=== PATIENT | female | born 1945 | race Caucasian/White ===

== ENCOUNTER 2021-01-05 09:22 | Emergency (ER) | payer BC ==
[2021-01-05] MEDS ORDERED: APRESOLINE 20 MG/ML INJ IV PRN (09:56)
[2021-01-05] MEDS ORDERED: NORVASC 5 MG PO ONE (09:58)
[2021-01-05] MEDS ORDERED: Sodium Chloride 0.9% 1000 ML 1,000 ML IV SCH (10:00)
[2021-01-05] MEDS ORDERED: Sodium Chloride 0.9% 1000 ML 1,000 ML ONE (10:08)
[2021-01-05] MEDS ORDERED: APRESOLINE 20 MG/ML INJ ONE (10:08)
[2021-01-05] MEDS ORDERED: NORVASC 5 MG ONE (10:08)
[2021-01-05 10:12] LABS: Absolute Neutrophil Ct (ANC) 3.24 (1.4-6.9); BASOPHIL % 0.4 % (0.0-0.4); Basophil (Absolute #) 0.02 (0-0.4); Eosinophil % 5.8 % (0.00-5.0); Eosinophil (Absolute #) 0.33 (0-0.5); Hematocrit 42.4 % (35-47); Lymphocyte (Absolute #) 1.61 (1.0-4.6); Lymphocytes % 28.4 % (24.0-44.0); Mean Corpuscular Hemoglobin 30.4 pg (26-32); Mean Platelet Volume 10.2 fl (7.5-11.0); Monocyte (Absolute #) 0.47 (0.0-1.3); Monocytes % 8.3 % (0.0-12.0); Neutrophil % 57.1 % (36.0-66.0); Platelet Count 316 K/mm3 (150-450); Red Blood Count 4.61 M/mm3 (4.1-5.4); Red Cell Distribution Width 14.2 % (11.5-14.0); White Blood Count 5.7 K/mm3 (4.0-10.5)
[2021-01-05 10:15] LABS: Appearance CLEAR (CLEAR); Bilirubin NEGATIVE (NEGATIVE); Blood NEGATIVE Ery/ul (0-5); Glucose NEGATIVE (NEGATIVE); Ketones NEGATIVE (NEGATIVE); Leukocyte Esterase NEGATIVE (NEGATIVE); Nitrite NEGATIVE (NEGATIVE); Protein,Urine Dip NEGATIVE (Negative); RBC 0-2 /HPF (0-2); Specific Gravity 1.008 (1.005-1.025); Urobilinogen NEGATIVE mg/dL (0-1)
[2021-01-05 10:22] LABS: ALBUMIN 4.7 g/dL (3.5-5.0); ANION GAP 16.4 MEQ/L (5-15); BILIRUBIN,TOTAL 0.7 mg/dL (0.2-1.3); Calcium 9.3 mg/dL (8.4-10.2); Creatinine 1 1.04 mg/dL (0.52-1.04); EST GLOMERULAR FILTRATION RATE 55.2 ML/MIN; MAGNESIUM 2.1 mg/dL (1.6-2.3); Potassium 3.5 mmol/L (3.5-5.1)
--- NOTE | 2021-01-05 11:57 | ERPHSYRPT ---
- History of Present Illness Time Seen by Provider: 01/05/21 09:45 Source: patient Exam Limitations: no limitations Patient Subjective Stated Complaint: HTN Triage Nursing Assessment: pt to ED c/o HTN. home recording was 220/94. reports being started on omlesartan approx 2 weeks ago and taken off lisinopril at that time. pt takes 1 dose daily, which she took today at 0530. reports taking a second dose at 0900 today d/t BP not coming down with first dose. denies CP or GAO. heart sounds clear. Physician History: Patient is a 75-year-old white female who has longstanding hypertension which has been treated treated that is with lisinopril and hydrochlorothiazide for a long time recently she was switched to almost olmesartan and today she finds her blood pressure to be markedly elevated. She denies any headache chest pain shortness of breath etc. no increased edema. Timing/Duration: today Activities at Onset: none Severity of Pain-Max: none Severity of Pain-Current: none Modifying Factors: Improves With: nothing Nitro Today/Relief: no nitro taken today Aspirin Treatment Today: no aspirin today Associated Symptoms: denies symptoms Prior Chest Pain/Cardiac Workup: no prior chest pain Allergies/Adverse Reactions: No Known Drug Allergies Allergy (Unverified 01/05/21 09:43) Home Medications: Fenofibrate [Fenoglide] 160 mg PO DAILY 01/05/21 [History] Hydrochlorothiazide 25 mg [hydroDIURIL 25 MG] 25 mg PO DAILY 01/05/21 [History] Levothyroxine Sodium 100 Mcg [Synthroid 100 Mcg] 100 mcg PO DAILY 01/05/21 [History] Olmesartan Medoxomil 20 mg [Benicar 20 MG] 40 mg PO DAILY 01/05/21 [History] Hx Tetanus, Diphtheria Vaccination/Date Given: Yes Hx Influenza Vaccination/Date Given: Yes Hx Pneumococcal Vaccination/Date Given: No Immunizations Up to Date: Yes Travel Risk - International Travel Have you traveled outside of the country in past 3 weeks: No - Coronavirus Screening Are you exhibiting any of the following symptoms?: No Close contact with a COVID-19 positive Pt in past 14-21 Days: No - Vaccine Status Have you recieved a Covid-19 vaccination: Yes 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 - Vaccination Dates Date of 2cond Vaccination (if applicable): mar Comment: booster recieved - Review of Systems Constitutional: No Fever, No Chills Eyes: No Symptoms Ears, Nose, & Throat: No Symptoms Respiratory: No Cough, No Dyspnea Cardiac: No Chest Pain, No Edema, No Syncope Abdominal/Gastrointestinal: No Abdominal Pain, No Nausea, No Vomiting, No Diarrhea Genitourinary Symptoms: No Dysuria Musculoskeletal: No Back Pain, No Neck Pain Skin: No Rash Neurological: No Dizziness, No Focal Weakness, No Sensory Changes Psychological: No Symptoms Endocrine: No Symptoms All Other Systems: Reviewed and Negative - Past Medical History Pertinent Past Medical History: Yes Cardiac History: High Cholesterol, Hypertension Endocrine Medical History: Hyperthyroidism - Past Surgical History Past Surgical History: Yes Female Surgical History: Tubal Ligation - Social History Smoking Status: Never smoker Exposure to second hand smoke: No Drug Use: none Patient Lives Alone: No () - Female History Hx Now: No - Nursing Vital Signs Nursing Vital Signs: Initial Vital Signs Temperature 97.0 F 01/05/21 09:32 Pulse Rate 62 01/05/21 09:32 Respiratory Rate 18 01/05/21 09:32 Blood Pressure 224/90 01/05/21 09:32 O2 Sat by Pulse Oximetry 98 01/05/21 09:32 Pain Scale Pain Intensity 0 - Physical Exam General Appearance: no apparent distress, alert Eye Exam: PERRL/EOMI, eyes nml inspection Ears, Nose, Throat Exam: normal ENT inspection, moist mucous membranes Neck Exam: normal inspection, non-tender, supple Respiratory Exam: normal breath sounds, lungs clear, No respiratory distress Cardiovascular Exam: regular rate/rhythm, normal heart sounds, No edema Gastrointestinal/Abdomen Exam: soft, No tenderness, No mass Back Exam: normal inspection, No CVA tenderness, No vertebral tenderness Extremity Exam: normal inspection, normal range of motion Neurologic Exam: alert, oriented x 3, cooperative, normal mood/affect, nml cerebellar function, sensation nml, No motor deficits Skin Exam: normal color, warm, dry Lymphatic Exam: No adenopathy SpO2: 98 - Course Nursing assessment & vital signs reviewed: Yes Ordered Tests: Active Orders 24 hr Category Date Time Status IV Insertion STAT Care 01/05/21 09:55 Active CBC W DIFF Stat Lab 01/05/21 10:00 Completed CMP Stat Lab 01/05/21 10:00 Completed MAGNESIUM Stat Lab 01/05/21 10:00 Completed TROPONIN Q3H Lab 01/05/21 10:00 Completed TROPONIN Q3H Lab 01/05/21 13:00 Ordered TROPONIN Q3H Lab 01/05/21 16:00 Ordered TROPONIN Q3H Lab 01/05/21 19:00 Ordered TROPONIN Q3H Lab 01/05/21 22:00 Ordered UA W/RFX UR CULTURE Stat Lab 01/05/21 10:07 Completed Medication Summary Generic Name Dose Route Start Last Admin Trade Name Freq PRN Reason Stop Dose Admin Hydralazine HCl 10 mg 01/05/21 09:56 01/05/21 10:14 Hydralazine Hcl 20 Mg/Ml Vial IV 02/04/21 09:55 10 mg [id number] PRN Administration HYPERTENSION Sodium Chloride 1,000 mls @ 50 mls/hr 01/05/21 10:00 01/05/21 10:12 Sodium Chloride 0.9% 1000 Ml IV 02/04/21 09:59 50 mls/hr .Q20H KLAUS Administration Discontinued Medications Generic Name Dose Route Start Last Admin Trade Name Freq PRN Reason Stop Dose Admin Amlodipine Besylate 10 mg 01/05/21 09:58 01/05/21 10:11 Amlodipine Besylate 5 Mg Tablet PO 01/05/21 09:59 10 mg STAT ONE Administration Amlodipine Besylate Confirm 01/05/21 10:08 Amlodipine Besylate 5 Mg Tablet Administered 01/05/21 10:09 Dose 10 mg .ROUTE .[facility] [employer] ONE Lab/Rad Data: Laboratory Result Diagrams 01/05/21 10:00 01/05/21 10:00 Laboratory Results 01/05/21 01/05/21 01/05/21 Range/Units 10:07 10:00 10:00 WBC (4.0-10.5) K/mm3 RBC (4.1-5.4) M/mm3 Hgb (12.0-16.0) gm/dl Hct (35-47) % MCV (78-100) fl MCH (26-32) pg MCHC (32-36) g/dl RDW (11.5-14.0) % Plt Count (150-450) K/mm3 MPV (7.5-11.0) fl Gran % (36.0-66.0) % Eos # (Auto) (0-0.5) Absolute Lymphs (auto) (1.0-4.6) Absolute Monos (auto) (0.0-1.3) Lymphocytes % (24.0-44.0) % Monocytes % (0.0-12.0) % Eosinophils % (0.00-5.0) % Basophils % (0.0-0.4) % Absolute Granulocytes (1.4-6.9) Basophils # (0-0.4) Sodium 138 (137-145) mmol/L Potassium 3.5 (3.5-5.1) mmol/L Chloride 101 (98-107) mmol/L Carbon Dioxide 24 (22-30) mmol/L Anion Gap 16.4 H (5-15) MEQ/L BUN 18 H (7-17) mg/dL Creatinine 1.04 (0.52-1.04) mg/dL Estimated GFR 55.2 ML/MIN Glucose 96 (74-106) mg/dL Calcium 9.3 (8.4-10.2) mg/dL Magnesium 2.1 (1.6-2.3) mg/dL Total Bilirubin 0.70 (0.2-1.3) mg/dL AST 35 (14-36) U/L ALT 29 (0-35) U/L Alkaline Phosphatase 36 L (38-126) U/L Troponin I < 0.012 (0.000-0.034) ng/mL Serum Total Protein 8.0 (6.3-8.2) g/dL Albumin 4.7 (3.5-5.0) g/dL Urine Color YELLOW (YELLOW) Urine Appearance CLEAR (CLEAR) Urine pH 5.0 (5-6) Ur Specific Morton 1.008 (1.005-1.025) Urine Protein NEGATIVE (Negative) Urine Ketones NEGATIVE (NEGATIVE) Urine Blood NEGATIVE (0-5) Jl/ul Urine Nitrite NEGATIVE (NEGATIVE) Urine Bilirubin NEGATIVE (NEGATIVE) Urine Urobilinogen NEGATIVE (0-1) mg/dL Ur Leukocyte Esterase NEGATIVE (NEGATIVE) Urine WBC (Auto) 3-5 (0-5) /HPF Urine RBC (Auto) 0-2 (0-2) /HPF U Epithel Cells (Auto) NONE (FEW) /HPF Urine Bacteria (Auto) NONE (NEGATIVE) /HPF Urine Culture Reflexed NO (NO) Urine Glucose NEGATIVE (NEGATIVE) mg/dL 01/05/21 Range/Units 10:00 WBC 5.7 (4.0-10.5) K/mm3 RBC 4.61 (4.1-5.4) M/mm3 Hgb 14.0 (12.0-16.0) gm/dl Hct 42.4 (35-47) % MCV 92.0 (78-100) fl MCH 30.4 (26-32) pg MCHC 33.0 (32-36) g/dl RDW 14.2 H (11.5-14.0) % Plt Count 316 (150-450) K/mm3 MPV 10.2 (7.5-11.0) fl Gran % 57.1 (36.0-66.0) % Eos # (Auto) 0.33 (0-0.5) Absolute Lymphs (auto) 1.61 (1.0-4.6) Absolute Monos (auto) 0.47 (0.0-1.3) Lymphocytes % 28.4 (24.0-44.0) % Monocytes % 8.3 (0.0-12.0) % Eosinophils % 5.8 H (0.00-5.0) % Basophils % 0.4 (0.0-0.4) % Absolute Granulocytes 3.24 (1.4-6.9) Basophils # 0.02 (0-0.4) Sodium (137-145) mmol/L Potassium (3.5-5.1) mmol/L Chloride (98-107) mmol/L Carbon Dioxide (22-30) mmol/L Anion Gap (5-15) MEQ/L BUN (7-17) mg/dL Creatinine (0.52-1.04) mg/dL Estimated GFR ML/MIN Glucose (74-106) mg/dL Calcium (8.4-10.2) mg/dL Magnesium (1.6-2.3) mg/dL Total Bilirubin (0.2-1.3) mg/dL AST (14-36) U/L ALT (0-35) U/L Alkaline Phosphatase (38-126) U/L Troponin I (0.000-0.034) ng/mL Serum Total Protein (6.3-8.2) g/dL Albumin (3.5-5.0) g/dL Urine Color (YELLOW) Urine Appearance (CLEAR) Urine pH (5-6) Ur Specific Morton (1.005-1.025) Urine Protein (Negative) Urine Ketones (NEGATIVE) Urine Blood (0-5) Jl/ul Urine Nitrite (NEGATIVE) Urine Bilirubin (NEGATIVE) Urine Urobilinogen (0-1) mg/dL Ur Leukocyte Esterase (NEGATIVE) Urine WBC (Auto) (0-5) /HPF Urine RBC (Auto) (0-2) /HPF U Epithel Cells (Auto) (FEW) /HPF Urine Bacteria (Auto) (NEGATIVE) /HPF Urine Culture Reflexed (NO) Urine Glucose (NEGATIVE) mg/dL - Progress Progress: improved Air Movement: good Blood Culture(s) Obtained: No Antibiotics given: No - Departure Departure Disposition: Home Clinical Impression: Hypertension Condition: Stable Critical Care Time: No Referrals: DOCTOR,NO FAMILY [Primary Care Provider] - Follow up/PCP as directed Instructions: Malignant Hypertension (DC) Prescriptions: Amlodipine Besylate 5 mg [Norvasc 5 mg] 10 mg PO DAILY 30 Days #30 tablet
[2021-01-05] MEDS ORDERED: HUMULIN R 100 UNIT in Sodium Chloride 0.9% 100 ML BAG 100 ML IV PRN (11:58)
== END 2021-01-05 12:11 | disposition home or self-care (01) ==
LOC: ED 09:22
DX: I10 Essential (primary) hypertension (principal); Z79.899 Other long term (current) drug therapy
CPT/HCPCS: 36000; 36415; 80053; 81001; 83735; 84484; 85025; 96374; 99284; J0360; A9270-GY

== ENCOUNTER 2023-07-12 11:24 | Observation (INO) | payer BC ==
--- NOTE | 2023-07-12 11:36 | ERPHSYRPT ---
- History of Present Illness Time Seen by Provider: 07/12/23 11:33 Source: patient Exam Limitations: no limitations Patient Subjective Stated Complaint: shortness of breath Triage Nursing Assessment: . Physician History: This is a 78-year-old white female patient who has been experiencing shortness of breath the last 2 to 3 days. Her symptoms are worse with exertion. She could not even work in the garden today. Patient's room air oxygen saturation level on arrival to the emergency room was 92%. 2 L nasal cannula of oxygen was placed on her and her oxygen saturation levels improved to 98%. Patient denies chest pain. She has no abdominal pain. She has not had fever or cough. Patient states that she is concerned about a possible blood clot. She has no leg pain. Patient does see a wound nurse in [place] for "leaky heart valve". Patient has no bleeding or clotting disorders. Patient has a history of hypertension and hypothyroidism. She is on a daily aspirin but no other anticoagulation medication Timing/Duration: day(s) (Began 2 to 3 days ago), worse Activities at Onset: activity Severity of Dyspnea-Max: mild (To moderate with activity and exertion) Severity of Dyspnea-Current: none Possible Cause: no prior episodes Modifying Factors: Improves With: activity, exertion Associated Symptoms: denies symptoms Allergies/Adverse Reactions: No Known Drug Allergies Allergy (Verified 07/12/23 11:32) Home Medications: Fenofibrate [Fenoglide] 160 mg PO DAILY 01/05/21 [History] Hydrochlorothiazide 25 mg [hydroDIURIL 25 MG] 25 mg PO DAILY 01/05/21 [History] Levothyroxine Sodium 100 Mcg [Synthroid 100 Mcg] 100 mcg PO DAILY 01/05/21 [History] Olmesartan Medoxomil 20 mg [Benicar 20 MG] 40 mg PO DAILY 01/05/21 [History] Hx Tetanus, Diphtheria Vaccination/Date Given: Yes Hx Influenza Vaccination/Date Given: Yes Hx Pneumococcal Vaccination/Date Given: No Travel Risk - International Travel Have you traveled outside of the country in past 3 weeks: No - Emerging Infectious Disease Are you exhibiting symptoms associated with any current EIDs: Yes Symptoms: Shortness of Breath - Review of Systems Constitutional: No Symptoms Eyes: No Symptoms Ears, Nose, & Throat: No Symptoms Respiratory: Dyspnea, Dyspnea on Exertion (JIMENES) Cardiac: No Symptoms Abdominal/Gastrointestinal: No Symptoms Genitourinary Symptoms: No Symptoms Musculoskeletal: No Symptoms Skin: No Symptoms Neurological: No Symptoms Psychological: No Symptoms Endocrine: No Symptoms Hematologic/Lymphatic: No Symptoms Immunological/Allergic: No Symptoms All Other Systems: Reviewed and Negative - Past Medical History Pertinent Past Medical History: Yes Cardiac History: High Cholesterol, Hypertension Endocrine Medical History: Hyperthyroidism - Past Surgical History Past Surgical History: Yes Female Surgical History: Tubal Ligation - Social History Smoking Status: Never smoker Exposure to second hand smoke: No Drug Use: none Patient Lives Alone: No () - Nursing Vital Signs Nursing Vital Signs: Initial Vital Signs Temperature 97.5 F 07/12/23 11:25 Pulse Rate 68 07/12/23 11:25 Respiratory Rate 18 07/12/23 11:25 Blood Pressure 128/85 07/12/23 11:25 O2 Sat by Pulse Oximetry 92 L 07/12/23 11:25 Pain Scale Pain Intensity 0 - Physical Exam General Appearance: no apparent distress, alert, anxiety Eye Exam: PERRL/EOMI, eyes nml inspection Ears, Nose, Throat Exam: hearing grossly normal, normal ENT inspection, normal pharynx Neck Exam: normal inspection, non-tender, supple, full range of motion Respiratory Exam: normal breath sounds, airway intact, No chest tenderness, No lungs clear, No respiratory distress Cardiovascular/Chest Exam: normal heart sounds, regular rate/rhythm Abdominal/Gastrointestinal Exam: soft, normal bowel sounds, No tenderness Rectal Exam: not done Extremity Exam: non-tender, normal range of motion, normal inspection Neurologic Exam: alert, oriented x 3, cooperative, director of medical staff services II-XII nml as tested, nml cerebellar function, nml station & gait, sensation nml Skin Exam: normal color, warm, dry Lymphatic Exam: No adenopathy SpO2 Interpretation: normal SpO2: 98 O2 Delivery: Room Air - Course Nursing assessment & vital signs reviewed: Yes EKG Interpreted by Me: RATE (65), Sinus Rhythm, NORMAL AXIS, NORMAL QRS, NORMAL ST-T, Other (No acute ischemia.NC interval is prolonged) Ordered Tests: Active Orders 24 hr Category Date Time Status Bookkeeping Clerk STAT Care 07/12/23 11:49 Active EKG-ER Only STAT Care 07/12/23 11:48 Active IV Insertion STAT Care 07/12/23 11:48 Active Oxygen-ED Only Nasal Cannula 2 lpm Care 07/12/23 13:24 Active Pulse Oximetry (ED) STAT Care 07/12/23 11:48 Active CHEST WITH CONTRAST [CT] Stat Exams 07/12/23 13:13 Completed VENOUS BILATERAL EXTREMITY [US] Stat Exams 07/12/23 13:15 Ordered BLOOD CULTURE Stat Lab 07/12/23 12:07 Received CBC W DIFF Stat Lab 07/12/23 11:15 Completed CMP Stat Lab 07/12/23 11:15 Completed D-DIMER QUANTITATIVE Stat Lab 07/12/23 11:15 Completed MAGNESIUM Stat Lab 07/12/23 11:15 Completed NT PRO BNPII Stat Lab 07/12/23 11:15 Completed PROTIME WITH INR Stat Lab 07/12/23 11:15 Completed TROPONIN Q4H Lab 07/12/23 11:15 Completed TROPONIN Q4H Lab 07/12/23 16:00 Ordered TROPONIN Q4H Lab 07/12/23 20:00 Ordered Medication Summary Discontinued Medications Generic Name Dose Route Start Last Admin Trade Name Freq PRN Reason Stop Dose Admin Enoxaparin Sodium 70 mg 07/12/23 15:07 07/12/23 15:15 Enoxaparin Sodium 80 Mg/0.8 Ml Syringe SQ 07/12/23 15:08 70 mg STAT ONE Administration Enoxaparin Sodium Confirm 07/12/23 15:13 Enoxaparin Sodium 80 Mg/0.8 Ml Syringe Administered 07/12/23 15:14 Dose 80 mg SQ .STK-MED ONE Sodium Chloride 500 mls @ 500 mls/hr 07/12/23 13:14 07/12/23 14:22 Sodium Chloride 0.9% 500 Ml IV 07/12/23 14:13 Infused .Q1H ONE Infusion Sodium Chloride Confirm 07/12/23 13:19 Sodium Chloride 0.9% 500 Ml Administered 07/12/23 13:20 Dose 500 mls @ ud IV .STK-MED ONE Lab/Rad Data: Laboratory Result Diagrams 07/12/23 11:15 07/12/23 11:15 Laboratory Results 07/12/23 07/12/23 07/12/23 Range/Units 12:19 11:15 11:15 WBC (4.0-10.5) x10^3/uL RBC (4.1-5.4) x10^6/uL Hgb (12.0-16.0) g/dL Hct (35-47) % MCV (78-100) fL MCH (26-32) pg MCHC (32-36) g/dL RDW (11.5-14.0) % Plt Count (150-450) x10^3/uL MPV (7.5-11.0) fL Gran % (36.0-66.0) % Immature Gran % (Auto) (0.00-0.4) % Nucleat RBC Rel Count (0.00-0.1) % Eos # (Auto) (0-0.5) x10^3/uL Immature Gran # (Auto) (0.00-0.03) x10^3u/L Absolute Lymphs (auto) (1.0-4.6) x10^3/uL Absolute Monos (auto) (0.0-1.3) x10^3/uL Absolute Nucleated RBC (0.00-0.01) x10^3u/L Lymphocytes % (24.0-44.0) % Monocytes % (0.0-12.0) % Eosinophils % (0.00-5.0) % Basophils % (0.0-0.4) % Absolute Granulocytes (1.4-6.9) x10^3/uL Basophils # (0-0.4) x10^3/uL PT 11.2 (9.4-12.5) SECONDS INR 1.03 (0.8-3.0) D-Dimer 8.86 H* (0.0-0.50) mg/L Sodium (135-145) mmol/L Potassium (3.5-5.1) mmol/L Chloride (98-107) mmol/L Carbon Dioxide (22-30) mmol/L Anion Gap (5-15) MEQ/L BUN (7-17) mg/dL Creatinine (0.52-1.04) mg/dL Estimated GFR ML/MIN Glucose (74-106) mg/dL Calcium (8.4-10.2) mg/dL Magnesium (1.6-2.3) mg/dL Total Bilirubin (0.2-1.3) mg/dL AST (14-36) U/L ALT (0-35) U/L Alkaline Phosphatase (38-126) U/L Troponin I < 0.012 (0.000-0.033) ng/mL NT-Pro-B Natriuret Pep (<300) pg/mL Serum Total Protein (6.3-8.2) g/dL Albumin (3.5-5.0) g/dL Influenza Type A Ag NEGATIVE (NEGATIVE) Influenza Type B Ag NEGATIVE (NEGATIVE) RSV (PCR) NEGATIVE (NEGATIVE) SARS-CoV-2 (PCR) NEGATIVE (NEGATIVE) 07/12/23 07/12/23 Range/Units 11:15 11:15 WBC 6.7 (4.0-10.5) x10^3/uL RBC 4.37 (4.1-5.4) x10^6/uL Hgb 13.4 (12.0-16.0) g/dL Hct 38.8 (35-47) % MCV 88.8 (78-100) fL MCH 30.7 (26-32) pg MCHC 34.5 (32-36) g/dL RDW 13.3 (11.5-14.0) % Plt Count 364 (150-450) x10^3/uL MPV 10.0 (7.5-11.0) fL Gran % 60.1 (36.0-66.0) % Immature Gran % (Auto) 0.4 (0.00-0.4) % Nucleat RBC Rel Count 0.0 (0.00-0.1) % Eos # (Auto) 0.24 (0-0.5) x10^3/uL Immature Gran # (Auto) 0.03 (0.00-0.03) x10^3u/L Absolute Lymphs (auto) 1.81 (1.0-4.6) x10^3/uL Absolute Monos (auto) 0.58 (0.0-1.3) x10^3/uL Absolute Nucleated RBC 0.00 (0.00-0.01) x10^3u/L Lymphocytes % 26.9 (24.0-44.0) % Monocytes % 8.6 (0.0-12.0) % Eosinophils % 3.6 (0.00-5.0) % Basophils % 0.4 (0.0-0.4) % Absolute Granulocytes 4.03 (1.4-6.9) x10^3/uL Basophils # 0.03 (0-0.4) x10^3/uL PT (9.4-12.5) SECONDS INR (0.8-3.0) D-Dimer (0.0-0.50) mg/L Sodium 136 (135-145) mmol/L Potassium 3.5 (3.5-5.1) mmol/L Chloride 101 (98-107) mmol/L Carbon Dioxide 22 (22-30) mmol/L Anion Gap 16.9 H (5-15) MEQ/L BUN 29 H (7-17) mg/dL Creatinine 1.70 H (0.52-1.04) mg/dL Estimated GFR 30.9 ML/MIN Glucose 109 H (74-106) mg/dL Calcium 10.2 (8.4-10.2) mg/dL Magnesium 2.1 (1.6-2.3) mg/dL Total Bilirubin 0.90 (0.2-1.3) mg/dL AST 30 (14-36) U/L ALT 25 (0-35) U/L Alkaline Phosphatase 39 (38-126) U/L Troponin I (0.000-0.033) ng/mL NT-Pro-B Natriuret Pep 218 (<300) pg/mL Serum Total Protein 8.1 (6.3-8.2) g/dL Albumin 4.6 (3.5-5.0) g/dL Influenza Type A Ag (NEGATIVE) Influenza Type B Ag (NEGATIVE) RSV (PCR) (NEGATIVE) SARS-CoV-2 (PCR) (NEGATIVE) - Progress Progress: improved, re-examined Air Movement: good Progress Note: 07/12/23 12:30 My medical decision making and the assignment of moderate complexity to this pat ient's medical issue is based on review of the patient's past medical history, review the patient's medication list, review the patient drug allergy list, history of present illness and physical findings on examination. The patient's workup includes placement of an intravenous line, CBC, CMP, PT INR and PTT, twelve-lead EKG, troponin level, D-dimer level, BNP, chest x-ray, viral swabs, group A strep swab Differential diagnosis includes pneumonia, arrhythmia, myocardial infarction, pulmonary embolus, CHF, anemia, viral illness 07/12/23 14:05 I interpreted the patient's laboratory data results. Patient has a D-dimer that is over 8. Her GFR is under the 50 cutoff that the radiologist prefer to to perform this CT scan of the chest with contrast. I discussed the risk of the contrast dye to the kidney function. She is aware that we try to minimize this risk with IV hydration. We provided her with this. She also understands that there is a risk of not performing the CT scan of the chest with contrast to rule out a pulmonary embolus. She knows that she could if there is a pulmonary embolus and it goes undetected because she refuses the test. I did discuss the alternative of VQ scan which we cannot provide this patient over the weekend. She has opted to perform the CT scan of the chest with contrast. 07/12/23 15:07 The radiologic technology instructor/technologist reported to me that the left lower extremity shows no DVT. However, the right lower extremity does show a proximal to distal DVT of the posterior tibial vein. CT of the chest with contrast was interpreted by the radiologist and I received verbal report. Patient has bilateral pulmonary emboli distally. I am awaiting the final official read. We will contact telehospitalist. I will provide the patient with Lovenox subcutaneously at this time. 07/12/23 15:18 Spoke with telehospitalist, Dr. Herrera, and reviewed the patient history, presenting complaint, physical findings and laboratory and radiographic study results. I told her that that I provided the patient with a dose of Lovenox subcutaneously. She agrees to place this patient in observation. Blood Culture(s) Obtained: Yes Antibiotics given: No Counseled pt/family regarding: lab results, diagnosis, rad results Medical Desision Making - Independent Historian Additional History obtained from: Spouse - Departure Departure Disposition: Observation Clinical Impression: Shortness of breath, Right leg DVT, Bilateral pulmonary embolism Condition: Stable Critical Care Time: Yes Critical Care Time(excluding separately billable procedures): Critical 30-74 mins (60) Referrals: DOCTOR,NO FAMILY [Primary Care Provider] - Follow up/PCP as directed
[2023-07-12 12:13] LABS: Absolute Neutrophil Ct (ANC) 4.03 x10^3/uL (1.4-6.9); BASOPHIL % 0.4 % (0.0-0.4); Basophil (Absolute #) 0.03 x10^3/uL (0-0.4); Eosinophil % 3.6 % (0.00-5.0); Eosinophil (Absolute #) 0.24 x10^3/uL (0-0.5); Hematocrit 38.8 % (35-47); Hemoglobin 13.4 g/dL (12.0-16.0); IMMATURE GRAN # 0.03 x10^3u/L (0.00-0.03); IMMATURE GRAN % 0.4 % (0.00-0.4); Lymphocyte (Absolute #) 1.81 x10^3/uL (1.0-4.6); Lymphocytes % 26.9 % (24.0-44.0); Mean Cell Volume 88.8 fL (78-100); Mean Corpuscular Hemoglobin 30.7 pg (26-32); Mean Corpuscular Hgb Concent. 34.5 g/dL (32-36); Monocyte (Absolute #) 0.58 x10^3/uL (0.0-1.3); Monocytes % 8.6 % (0.0-12.0); Neutrophil % 60.1 % (36.0-66.0); Platelet Count 364 x10^3/uL (150-450); Red Blood Count 4.37 x10^6/uL (4.1-5.4); Red Cell Distribution Width 13.3 % (11.5-14.0); White Blood Count 6.7 x10^3/uL (4.0-10.5)
[2023-07-12 12:35] LABS: ALBUMIN 4.6 g/dL (3.5-5.0); ANION GAP 16.9 MEQ/L (5-15); BILIRUBIN,TOTAL 0.9 mg/dL (0.2-1.3); Calcium 10.2 mg/dL (8.4-10.2); Creatinine 1 1.7 mg/dL (0.52-1.04); EST GLOMERULAR FILTRATION RATE 30.9 ML/MIN; MAGNESIUM 2.1 mg/dL (1.6-2.3); Potassium 3.5 mmol/L (3.5-5.1); Total Protein 8.1 g/dL (6.3-8.2)
[2023-07-12 12:57] LABS: INFLUENZA A NEGATIVE (NEGATIVE); INFLUENZA B NEGATIVE (NEGATIVE); RESPIRATORY SYNCTIAL VIRUS NEGATIVE (NEGATIVE); SARS-CoV-2 Xpert Express NEGATIVE (NEGATIVE)
[2023-07-12 12:58] LABS: INR 1.03 (0.8-3.0); PROTIME 11.2 SECONDS (9.4-12.5)
[2023-07-12 13:13] LABS: D-DIMER QUANTITATIVE 8.86 mg/L (0.0-0.50)
[2023-07-12] MEDS ORDERED: Sodium Chloride 0.9% 500 ML 500 ML IV ONE (13:19)
[2023-07-12] MEDS: Sodium Chloride 0.9% 500 ML 500 ML IV ONE (13:22)
--- NOTE | 2023-07-12 15:12 | XRAY ---
CLINICAL HISTORY: SOB; Elevated D-dimer COMPARISON: None TECHNIQUE: Contiguous axial images were obtained from the neck base through the upper abdomen following intravenous administration of iodinated contrast material. One of the following dose-reduction techniques was utilized for this exam. Automated exposure control, adjustment of the mA and/or kV according to patient size, and use of iterative reconstruction. FINDINGS: Adequate contrast bolus with evidence of bilateral acute pulmonary embolism evident by filling defect with arterial dilatation involving the right upper lobar and lower lobar with extension to segmental branches. The left lower lobar and left upper segmental branches show acute filling defects as well. The central airways are patent. The lungs are clear. No pleural effusion. The heart is enlarged. Unremarkable aorta. There are mild coronary artery and aortic atherosclerotic calcifications. No pericardial effusion is identified. No mediastinal, hilar, or axillary lymphadenopathy is noted. No suspicious lytic or sclerotic osseous lesions are identified. IMPRESSION: 1. Bilateral acute pulmonary embolism involving the right upper and lower lobar branches with extension to segmental branches, and left lower lobar branch with segmental lower and upper branches. 2. Cardiomegaly for further assessment. ER was called at [phone] at 02:03 PM FLIGHT ATTENDANT, and the results were communicated to [facility]. Electronically Signed by: Dino Maharaj MD. (07/12/2023 15:08:57 EDT)
[2023-07-12] MEDS ORDERED: ENOXAPARIN SODIUM SQ ONE (15:13)
[2023-07-12] MEDS: ENOXAPARIN SODIUM SQ ONE (15:15)
[2023-07-12] MEDS ORDERED: Zofran 4 MG/2 ML VIAL IV PRN (16:15)
[2023-07-12] MEDS ORDERED: TYLENOL 325 MG PO PRN (16:15)
--- NOTE | 2023-07-12 16:23 | PCM.HP ---
<NICK ODONNELL - Last Filed: 07/12/23 16:38> History of Present Illness - Chief Complaint Chief Complaint: Bilateral pulmonary emboli Date: 07/12/23 History of Present Illness: is a 78 year old female with pmhx of HLD, hypothyroidism, and HTN who presented to ED after experiencing progressive shortness of breath since 07/09/23. Patient reports that she was in her usual state of health until she returned home from recent travel from [place] to [place] and then home on 07/08/23 and the next day noticed she has been unable to perform ADL's without getting moderately short of breath. Patient denies hemoptysis, chest pain, fev er, syncope, leg pain/swelling. In ED vitals stable. Patient did have spo2 of 92% and was placed on 2L and now at 96%. Lab findings remarkable for an elevated Ddimer and PETE. EKG NS with no ST elevation/deviations. CT chest demonstrates bilateral PE involving the right upper and lower lobes as well as the left lower lobe. Venous doppler with right lower extremity DVT of the posterior tibial vein. Patient given therapeutic lovenox in ED as well as hydration prior to CT scan with 500ml bolus. Plan to observe overnight with DOAC initiation tomorrow. - Review of Systems Constitutional: No Symptoms Eyes: No Symptoms Ears, Nose, & Throat: No Symptoms Respiratory: Short Of Breath Cardiac: No Symptoms Abdominal/Gastrointestinal: No Symptoms Genitourinary Symptoms: No Symptoms Musculoskeletal: No Symptoms Skin: No Symptoms Neurological: No Symptoms Psychological: No Symptoms Endocrine: No Symptoms Hematologic/Lymphatic: No Symptoms Immunological/Allergic: No Symptoms Medications & Allergies Home Medications: Home Medication List Fenofibrate [Fenoglide] 160 mg PO DAILY 01/05/21 [History Confirmed 07/12/23] Amlodipine Besylate 5 mg [Norvasc 5 mg] 5 mg PO BID 07/12/23 [History Confirmed 07/12/23] Aspirin EC 81 mg [Ecotrin 81 mg] 81 mg PO DAILY 07/12/23 [History Confirmed 07/12/23] Clonidine HCl 0.1 mg [Clonidine 0.1 mg Tablet] 0.1 mg PO HS 07/12/23 [History Confirmed 07/12/23] Irbesartan [Avapro] 300 mg PO DAILY 07/12/23 [History Confirmed 07/12/23] Levothyroxine Sodium 88 Mcg [Synthroid 88 Mcg] 88 mcg PO DAILY 07/12/23 [History Confirmed 07/12/23] Multivitamins,Therapeutic Tab* [Theragran Multivitamin] 1 tab PO DAILY 07/12/23 [History Confirmed 07/12/23] hydroCHLOROthiazide [Hydrochlorothiazide] 12.5 mg PO DAILY 07/12/23 [History Confirmed 07/12/23] Allergies/Adverse Reactions: Allergies Allergy/AdvReac Type Severity Reaction Status Date / Time No Known Drug Allergies Allergy Verified 07/12/23 11:32 - Past Medical History Past Medical History: Yes Cardiac History: High Cholesterol, Hypertension Endocrine Medical History: Hyperthyroidism - Past Surgical History Past Surgical History: Yes Female Surgical History: Tubal Ligation - Social History Smoking Status: Never smoker Exposure to second hand smoke: No Alcohol: None Drug Use: none - Social Determinants of Health Will the patient participate in the screening: Yes Do you worry about a steady place to live?: No Do you have any problems with any of the following?: No known problems In the past 12 months,have you had to go without utilities?: No Have you or anyone in your house had to go without enough: No Transportation Issues: No Has anyone in your support network made you feel unsafe?: No - Physical Exam Vital Signs: Vital Signs - 24 hr Temp Pulse Resp BP BP Pulse Ox 07/12/23 15:23 98 07/12/23 14:30 61 14 154/64 96 07/12/23 14:24 63 18 156/123 97 07/12/23 14:00 148/76 93 L 07/12/23 13:30 60 21 138/63 96 07/12/23 13:00 60 18 119/64 96 07/12/23 12:06 92 L 07/12/23 11:25 97.5 F 68 18 128/85 98 General Appearance: no apparent distress Neurologic Exam: alert, oriented x 3, cooperative Eye Exam: PERRL/EOMI Ears, Nose, Throat Exam: normal ENT inspection Neck Exam: normal inspection Respiratory Exam: normal breath sounds, lungs clear Cardiovascular Exam: regular rate/rhythm, normal heart sounds Pelvic Exam: not done Rectal Exam: deferred Back Exam: normal inspection Extremity Exam: normal inspection Skin Exam: normal color Results - Labs Lab/Micro Results: Lab Results-Last 24 Hours 07/12/23 07/12/23 07/12/23 Range/Units 11:15 11:15 11:15 WBC 6.7 (4.0-10.5) x10^3/uL RBC 4.37 (4.1-5.4) x10^6/uL Hgb 13.4 (12.0-16.0) g/dL Hct 38.8 (35-47) % MCV 88.8 (78-100) fL MCH 30.7 (26-32) pg MCHC 34.5 (32-36) g/dL RDW 13.3 (11.5-14.0) % Plt Count 364 (150-450) x10^3/uL MPV 10.0 (7.5-11.0) fL Gran % 60.1 (36.0-66.0) % Immature Gran % (Auto) 0.4 (0.00-0.4) % Nucleat RBC Rel Count 0.0 (0.00-0.1) % Eos # (Auto) 0.24 (0-0.5) x10^3/uL Immature Gran # (Auto) 0.03 (0.00-0.03) x10^3u/L Absolute Lymphs (auto) 1.81 (1.0-4.6) x10^3/uL Absolute Monos (auto) 0.58 (0.0-1.3) x10^3/uL Absolute Nucleated RBC 0.00 (0.00-0.01) x10^3u/L Lymphocytes % 26.9 (24.0-44.0) % Monocytes % 8.6 (0.0-12.0) % Eosinophils % 3.6 (0.00-5.0) % Basophils % 0.4 (0.0-0.4) % Absolute Granulocytes 4.03 (1.4-6.9) x10^3/uL Basophils # 0.03 (0-0.4) x10^3/uL PT 11.2 (9.4-12.5) SECONDS INR 1.03 (0.8-3.0) D-Dimer 8.86 H* (0.0-0.50) mg/L Sodium 136 (135-145) mmol/L Potassium 3.5 (3.5-5.1) mmol/L Chloride 101 (98-107) mmol/L Carbon Dioxide 22 (22-30) mmol/L Anion Gap 16.9 H (5-15) MEQ/L BUN 29 H (7-17) mg/dL Creatinine 1.70 H (0.52-1.04) mg/dL Estimated GFR 30.9 ML/MIN Glucose 109 H (74-106) mg/dL Calcium 10.2 (8.4-10.2) mg/dL Magnesium 2.1 (1.6-2.3) mg/dL Total Bilirubin 0.90 (0.2-1.3) mg/dL AST 30 (14-36) U/L ALT 25 (0-35) U/L Alkaline Phosphatase 39 (38-126) U/L Troponin I (0.000-0.033) ng/mL NT-Pro-B Natriuret Pep 218 (<300) pg/mL Serum Total Protein 8.1 (6.3-8.2) g/dL Albumin 4.6 (3.5-5.0) g/dL Influenza Type A Ag (NEGATIVE) Influenza Type B Ag (NEGATIVE) RSV (PCR) (NEGATIVE) SARS-CoV-2 (PCR) (NEGATIVE) 07/12/23 07/12/23 Range/Units 11:15 12:19 WBC (4.0-10.5) x10^3/uL RBC (4.1-5.4) x10^6/uL Hgb (12.0-16.0) g/dL Hct (35-47) % MCV (78-100) fL MCH (26-32) pg MCHC (32-36) g/dL RDW (11.5-14.0) % Plt Count (150-450) x10^3/uL MPV (7.5-11.0) fL Gran % (36.0-66.0) % Immature Gran % (Auto) (0.00-0.4) % Nucleat RBC Rel Count (0.00-0.1) % Eos # (Auto) (0-0.5) x10^3/uL Immature Gran # (Auto) (0.00-0.03) x10^3u/L Absolute Lymphs (auto) (1.0-4.6) x10^3/uL Absolute Monos (auto) (0.0-1.3) x10^3/uL Absolute Nucleated RBC (0.00-0.01) x10^3u/L Lymphocytes % (24.0-44.0) % Monocytes % (0.0-12.0) % Eosinophils % (0.00-5.0) % Basophils % (0.0-0.4) % Absolute Granulocytes (1.4-6.9) x10^3/uL Basophils # (0-0.4) x10^3/uL PT (9.4-12.5) SECONDS INR (0.8-3.0) D-Dimer (0.0-0.50) mg/L Sodium (135-145) mmol/L Potassium (3.5-5.1) mmol/L Chloride (98-107) mmol/L Carbon Dioxide (22-30) mmol/L Anion Gap (5-15) MEQ/L BUN (7-17) mg/dL Creatinine (0.52-1.04) mg/dL Estimated GFR ML/MIN Glucose (74-106) mg/dL Calcium (8.4-10.2) mg/dL Magnesium (1.6-2.3) mg/dL Total Bilirubin (0.2-1.3) mg/dL AST (14-36) U/L ALT (0-35) U/L Alkaline Phosphatase (38-126) U/L Troponin I < 0.012 (0.000-0.033) ng/mL NT-Pro-B Natriuret Pep (<300) pg/mL Serum Total Protein (6.3-8.2) g/dL Albumin (3.5-5.0) g/dL Influenza Type A Ag NEGATIVE (NEGATIVE) Influenza Type B Ag NEGATIVE (NEGATIVE) RSV (PCR) NEGATIVE (NEGATIVE) SARS-CoV-2 (PCR) NEGATIVE (NEGATIVE) - Radiology Impressions Radiology Exams & Impressions: Radiology Procedures Category Date Time Status CHEST WITH CONTRAST [CT] Stat Exams 07/12/23 13:13 Completed VENOUS BILATERAL EXTREMITY [US] Stat Exams 07/12/23 13:15 Taken - Other Procedures and Tests Respiratory Therapy 07/12/23 16:15 Oxygen Nasal Cannula 2 lpm Assessment/Plan (1) Bilateral pulmonary embolism Current Visit: Yes Status: Acute Assessment & Plan: -CT chest reviewed demonstrating bilateral PEs in the right upper and lower lobes, and left lower lobe. -Venous doppler per fund controller/tech read showing right lower extremity does show a proximal to distal DVT of the posterior tibial vein -Tele -Supplemental oxygen with goal spo2 >92% -RT eval -ABG if significant hypoxia/lethargy --Lovenox given in ED, plan for DOAC tomorrow - Eliquis 10mg po bid x 7 days then 5mg po bid there after -ECHO to check RVSP if able prior to DC Code(s): I26.99 - OTHER PULMONARY EMBOLISM WITHOUT ACUTE COR PULMONALE (2) PETE (acute kidney injury) Current Visit: Yes Status: Acute Assessment & Plan: -Monitor renal/lytes -500ml bolus given prior to CT, continue IVF -Monitor renal/lytes daily -Avoid JO/ARB/NSAIDS/diuretics -hold HCTZ/Avapro Code(s): N17.9 - ACUTE KIDNEY FAILURE, UNSPECIFIED (3) HTN (hypertension) Current Visit: Yes Status: Acute Assessment & Plan: -Stable, continue amlodipine, hold HCTZ/Avapro Hypothyroid -Continue levothyroxine Code(s): I10 - ESSENTIAL (PRIMARY) HYPERTENSION (4) Hypothyroid Current Visit: Yes Status: Acute Assessment & Plan: -continue levothyroxine Code(s): E03.9 - HYPOTHYROIDISM, UNSPECIFIED (5) Right leg DVT Current Visit: Yes Status: Acute Assessment & Plan: -Venous doppler per fund controller/tech read showing right lower extremity does show a proximal to distal DVT of the posterior tibial vein -see PE, plan for Eliquis VTE: lovenox/Eliquis Dispo: 1-2 days Code status: Full Code Next of Kin: Shama Michel child [phone] The entirety of this encounter was performed via Telemedicine This visit was performed using real-time audio and video connection between my location and thepatients locationwith the assistance of a surrogateat the patients location. Written or verbal consent was obtained from the patient/guardian to perform this visit [facility] technology. Any patient questions regarding the telemedicine interaction were answered. Code(s): I82.401 - ACUTE EMBOLISM AND THOMBOS UNSP DEEP VEINS OF R LOW EXTREM Telemedicine Encounter - Telemedicine Encounter Telemedicine Encounter: The entirety of this encounter was performed via Telemedicine" <PAUL EARL - Last Filed: 07/12/23 19:28> History of Present Illness - Chief Complaint History of Present Illness: is a 78 year old female. - Physical Exam Vital Signs: Vital Signs - 24 hr Temp Pulse Resp BP BP Pulse Ox 07/12/23 19:02 80 16 94 L 07/12/23 19:01 94 L 07/12/23 18:11 95 07/12/23 17:03 98.0 F 62 17 148/70 96 07/12/23 16:30 96 07/12/23 15:23 98 07/12/23 14:30 61 14 154/64 96 07/12/23 14:24 63 18 156/123 97 07/12/23 14:00 148/76 93 L 07/12/23 13:30 60 21 138/63 96 07/12/23 13:00 60 18 119/64 96 07/12/23 12:06 92 L 07/12/23 11:25 97.5 F 68 18 128/85 98 Results - Labs Lab/Micro Results: Lab Results-Last 24 Hours 07/12/23 07/12/23 07/12/23 Range/Units 11:15 11:15 11:15 WBC 6.7 (4.0-10.5) x10^3/uL RBC 4.37 (4.1-5.4) x10^6/uL Hgb 13.4 (12.0-16.0) g/dL Hct 38.8 (35-47) % MCV 88.8 (78-100) fL MCH 30.7 (26-32) pg MCHC 34.5 (32-36) g/dL RDW 13.3 (11.5-14.0) % Plt Count 364 (150-450) x10^3/uL MPV 10.0 (7.5-11.0) fL Gran % 60.1 (36.0-66.0) % Immature Gran % (Auto) 0.4 (0.00-0.4) % Nucleat RBC Rel Count 0.0 (0.00-0.1) % Eos # (Auto) 0.24 (0-0.5) x10^3/uL Immature Gran # (Auto) 0.03 (0.00-0.03) x10^3u/L Absolute Lymphs (auto) 1.81 (1.0-4.6) x10^3/uL Absolute Monos (auto) 0.58 (0.0-1.3) x10^3/uL Absolute Nucleated RBC 0.00 (0.00-0.01) x10^3u/L Lymphocytes % 26.9 (24.0-44.0) % Monocytes % 8.6 (0.0-12.0) % Eosinophils % 3.6 (0.00-5.0) % Basophils % 0.4 (0.0-0.4) % Absolute Granulocytes 4.03 (1.4-6.9) x10^3/uL Basophils # 0.03 (0-0.4) x10^3/uL PT 11.2 (9.4-12.5) SECONDS INR 1.03 (0.8-3.0) D-Dimer 8.86 H* (0.0-0.50) mg/L Sodium 136 (135-145) mmol/L Potassium 3.5 (3.5-5.1) mmol/L Chloride 101 (98-107) mmol/L Carbon Dioxide 22 (22-30) mmol/L Anion Gap 16.9 H (5-15) MEQ/L BUN 29 H (7-17) mg/dL Creatinine 1.70 H (0.52-1.04) mg/dL Estimated GFR 30.9 ML/MIN Glucose 109 H (74-106) mg/dL Calcium 10.2 (8.4-10.2) mg/dL Magnesium 2.1 (1.6-2.3) mg/dL Total Bilirubin 0.90 (0.2-1.3) mg/dL AST 30 (14-36) U/L ALT 25 (0-35) U/L Alkaline Phosphatase 39 (38-126) U/L Troponin I (0.000-0.033) ng/mL NT-Pro-B Natriuret Pep 218 (<300) pg/mL Serum Total Protein 8.1 (6.3-8.2) g/dL Albumin 4.6 (3.5-5.0) g/dL Influenza Type A Ag (NEGATIVE) Influenza Type B Ag (NEGATIVE) RSV (PCR) (NEGATIVE) SARS-CoV-2 (PCR) (NEGATIVE) 07/12/23 07/12/23 07/12/23 Range/Units 11:15 12:19 15:43 WBC (4.0-10.5) x10^3/uL RBC (4.1-5.4) x10^6/uL Hgb (12.0-16.0) g/dL Hct (35-47) % MCV (78-100) fL MCH (26-32) pg MCHC (32-36) g/dL RDW (11.5-14.0) % Plt Count (150-450) x10^3/uL MPV (7.5-11.0) fL Gran % (36.0-66.0) % Immature Gran % (Auto) (0.00-0.4) % Nucleat RBC Rel Count (0.00-0.1) % Eos # (Auto) (0-0.5) x10^3/uL Immature Gran # (Auto) (0.00-0.03) x10^3u/L Absolute Lymphs (auto) (1.0-4.6) x10^3/uL Absolute Monos (auto) (0.0-1.3) x10^3/uL Absolute Nucleated RBC (0.00-0.01) x10^3u/L Lymphocytes % (24.0-44.0) % Monocytes % (0.0-12.0) % Eosinophils % (0.00-5.0) % Basophils % (0.0-0.4) % Absolute Granulocytes (1.4-6.9) x10^3/uL Basophils # (0-0.4) x10^3/uL PT (9.4-12.5) SECONDS INR (0.8-3.0) D-Dimer (0.0-0.50) mg/L Sodium (135-145) mmol/L Potassium (3.5-5.1) mmol/L Chloride (98-107) mmol/L Carbon Dioxide (22-30) mmol/L Anion Gap (5-15) MEQ/L BUN (7-17) mg/dL Creatinine (0.52-1.04) mg/dL Estimated GFR ML/MIN Glucose (74-106) mg/dL Calcium (8.4-10.2) mg/dL Magnesium (1.6-2.3) mg/dL Total Bilirubin (0.2-1.3) mg/dL AST (14-36) U/L ALT (0-35) U/L Alkaline Phosphatase (38-126) U/L Troponin I < 0.012 0.018 (0.000-0.033) ng/mL NT-Pro-B Natriuret Pep (<300) pg/mL Serum Total Protein (6.3-8.2) g/dL Albumin (3.5-5.0) g/dL Influenza Type A Ag NEGATIVE (NEGATIVE) Influenza Type B Ag NEGATIVE (NEGATIVE) RSV (PCR) NEGATIVE (NEGATIVE) SARS-CoV-2 (PCR) NEGATIVE (NEGATIVE) - Radiology Impressions Radiology Exams & Impressions: Radiology Procedures Category Date Time Status CHEST WITH CONTRAST [CT] Stat Exams 07/12/23 13:13 Completed ECHO W/2D AND DOPPLER [US] Routine Exams 07/12/23 16:58 Ordered VENOUS BILATERAL EXTREMITY [US] Stat Exams 07/12/23 13:15 Taken - Other Procedures and Tests Respiratory Therapy 07/12/23 16:15 Oxygen Nasal Cannula 2 lpm Telemedicine Encounter - Telemedicine Encounter Telemedicine Encounter: The entirety of this encounter was performed via Telemedicine" ARVIN Encounter - ARVIN Encounter Attestation ARVIN Encounter Attestation: "ASHLEE Louis andsravaniiscussed pertinent aspects of their care with Nick Odonnell and agree with the history, physical exam (any modifications based on my personal exam will be noted below), assessment, and plan as outlined in original note. Please see immediately below for my summary of findings and additional assessment and plan along with any meaningful corrections/explanations to the Subjective/Objective portions of the ARVIN note will be noted." My portion of the encounter took place via telemedicine. -Patient with RLE DVT and bilateral PEs however patient is hemodynamically stable. Risk factor seems to be prolonged car traveling without frequent breaks. Patient seems uptodate on age appropriate cancer screening (mammogram, colonoscopy) and no other localizing symptoms concerning for cancer. Got therapeutic lovenox in the ER. Switch to eliquis tomorrow and follow up with PCP in [place].
[2023-07-12] MEDS: Sodium Chloride 0.9% 1000 ML 1,000 ML IV SCH (16:49)
--- NOTE | 2023-07-12 21:16 | XRAY ---
Indication: Short of breath. Elevated d-dimer. Two-dimensional sonogram and color Doppler imaging major venous vessels left and right leg performed. Comparison: None Occluding thrombus seen in the right posterior tibial vein. No thrombus seen in the remaining examined deep venous vessels left and right leg including greater saphenous vein. Veins demonstrate normal compressibility. Venous waveforms are normal with and without augmentation. Impression: Occluding DVT right posterior tibial vein. Left leg negative for DVT. Comment: Preliminary report was given.
[2023-07-12] MEDS: NORVASC 5 MG PO SCH (21:20)
[2023-07-12] MEDS: CLONIDINE 0.1 MG TABLET PO SCH (21:20)
[2023-07-13 05:41] LABS: Absolute Neutrophil Ct (ANC) 2.83 x10^3/uL (1.4-6.9); BASOPHIL % 0.8 % (0.0-0.4); Basophil (Absolute #) 0.05 x10^3/uL (0-0.4); Eosinophil % 7.6 % (0.00-5.0); Eosinophil (Absolute #) 0.45 x10^3/uL (0-0.5); Hematocrit 37.9 % (35-47); Hemoglobin 13.1 g/dL (12.0-16.0); IMMATURE GRAN # 0.02 x10^3u/L (0.00-0.03); IMMATURE GRAN % 0.3 % (0.00-0.4); Lymphocyte (Absolute #) 2.03 x10^3/uL (1.0-4.6); Lymphocytes % 34.1 % (24.0-44.0); Mean Cell Volume 89.4 fL (78-100); Mean Corpuscular Hemoglobin 30.9 pg (26-32); Mean Corpuscular Hgb Concent. 34.6 g/dL (32-36); Mean Platelet Volume 9.8 fL (7.5-11.0); Monocyte (Absolute #) 0.58 x10^3/uL (0.0-1.3); Monocytes % 9.7 % (0.0-12.0); Neutrophil % 47.5 % (36.0-66.0); Platelet Count 328 x10^3/uL (150-450); Red Blood Count 4.24 x10^6/uL (4.1-5.4); Red Cell Distribution Width 13.7 % (11.5-14.0)
[2023-07-13 06:02] LABS: ALBUMIN 4.2 g/dL (3.5-5.0); ANION GAP 12.9 MEQ/L (5-15); BILIRUBIN,TOTAL 0.6 mg/dL (0.2-1.3); Calcium 9.1 mg/dL (8.4-10.2); Creatinine 1 1.37 mg/dL (0.52-1.04); Potassium 3.6 mmol/L (3.5-5.1); Total Protein 7.5 g/dL (6.3-8.2)
[2023-07-13 07:41] VITALS: RESP 16; TEMP 97.8
--- NOTE | 2023-07-13 10:15 | PCM.DS ---
Discharge Summary Date of Admission: 07/12/23 16:08 Date of Discharge: 07/13/23 Admitting Physician: PAUL EARL MD Primary Care Provider: NO FAMILY DOCTOR Allergies Allergies No Known Drug Allergies Allergy (Verified 07/12/23 11:32) Hospital Summary - Hospital Course Hospital Course: is a 78 year old female with pmhx of HLD, hypothyroidism, and HTN. She presented to ED on 07/12/23 after experiencing progressive shortness of breath since 07/09/23. Patient reports that she was in her usual state of health until she returned home from recent travel from home in [place] to [place] for a graduation and then to [place] on 07/08/23. The next day noticed she has been unable to perform ADL's without getting moderately short of breath. Patient denies hemoptysis, chest pain, fever, syncope, leg pain/swelling. In ED vitals stable. Patient did have spo2 of 92% and was placed on 2L and now at 96%. Lab findings remarkable for an elevated Ddimer and PETE. EKG NS with no ST elevation/deviations. CT chest demonstrates bilateral PE involving the right upper and lower lobes as well as the left lower lobe. Venous doppler with right lower extremity DVT of the posterior tibial vein. Patient given therapeutic Lovenox in ED as well as hydration prior to CT scan with 500ml bolus. She was observed overnight and DOAC initiation of Eliquis started this AM. Will continue OP. RT to eval for home oxygen needs. Pt states she will be staying in [place] until October as she is house sitting. She will need an OP f/u appointment with a PCP. will make appointment tomorrow and call pt. Pharmacy willing to provide Eliquis for this evening and in the am as starter pack cannot be delivered until tomorrow afternoon to [facility] pharmacy. - Vitals & Intake/Output Vital Signs: Vital Signs Temperature 97.8 F 07/13/23 07:41 Pulse Rate 54 L 07/13/23 07:41 Respiratory Rate 16 07/13/23 07:41 Blood Pressure 147/70 07/13/23 07:41 O2 Sat by Pulse Oximetry 94 L 07/13/23 08:36 Intake & Output: Intake & Output 05/16/24 05/17/24 05/18/24 05/19/24 11:59 11:59 11:59 11:59 Intake Total 1567 Balance 1567 Weight 63.9 kg 63.4 kg - Lab Result Diagrams: 07/13/23 05:13 07/13/23 05:13 Lab Results-Last 24 Hrs: Lab Results-Last 24 Hours 07/12/23 07/12/23 07/12/23 Range/Units 11:15 11:15 11:15 WBC 6.7 (4.0-10.5) x10^3/uL RBC 4.37 (4.1-5.4) x10^6/uL Hgb 13.4 (12.0-16.0) g/dL Hct 38.8 (35-47) % MCV 88.8 (78-100) fL MCH 30.7 (26-32) pg MCHC 34.5 (32-36) g/dL RDW 13.3 (11.5-14.0) % Plt Count 364 (150-450) x10^3/uL MPV 10.0 (7.5-11.0) fL Gran % 60.1 (36.0-66.0) % Immature Gran % (Auto) 0.4 (0.00-0.4) % Nucleat RBC Rel Count 0.0 (0.00-0.1) % Eos # (Auto) 0.24 (0-0.5) x10^3/uL Immature Gran # (Auto) 0.03 (0.00-0.03) x10^3u/L Absolute Lymphs (auto) 1.81 (1.0-4.6) x10^3/uL Absolute Monos (auto) 0.58 (0.0-1.3) x10^3/uL Absolute Nucleated RBC 0.00 (0.00-0.01) x10^3u/L Lymphocytes % 26.9 (24.0-44.0) % Monocytes % 8.6 (0.0-12.0) % Eosinophils % 3.6 (0.00-5.0) % Basophils % 0.4 (0.0-0.4) % Absolute Granulocytes 4.03 (1.4-6.9) x10^3/uL Basophils # 0.03 (0-0.4) x10^3/uL PT 11.2 (9.4-12.5) SECONDS INR 1.03 (0.8-3.0) D-Dimer 8.86 H* (0.0-0.50) mg/L Sodium 136 (135-145) mmol/L Potassium 3.5 (3.5-5.1) mmol/L Chloride 101 (98-107) mmol/L Carbon Dioxide 22 (22-30) mmol/L Anion Gap 16.9 H (5-15) MEQ/L BUN 29 H (7-17) mg/dL Creatinine 1.70 H (0.52-1.04) mg/dL Estimated GFR 30.9 ML/MIN Glucose 109 H (74-106) mg/dL Calcium 10.2 (8.4-10.2) mg/dL Magnesium 2.1 (1.6-2.3) mg/dL Total Bilirubin 0.90 (0.2-1.3) mg/dL AST 30 (14-36) U/L ALT 25 (0-35) U/L Alkaline Phosphatase 39 (38-126) U/L Troponin I (0.000-0.033) ng/mL NT-Pro-B Natriuret Pep 218 (<300) pg/mL Serum Total Protein 8.1 (6.3-8.2) g/dL Albumin 4.6 (3.5-5.0) g/dL Influenza Type A Ag (NEGATIVE) Influenza Type B Ag (NEGATIVE) RSV (PCR) (NEGATIVE) SARS-CoV-2 (PCR) (NEGATIVE) 07/12/23 07/12/23 07/12/23 Range/Units 11:15 12:19 15:43 WBC (4.0-10.5) x10^3/uL RBC (4.1-5.4) x10^6/uL Hgb (12.0-16.0) g/dL Hct (35-47) % MCV (78-100) fL MCH (26-32) pg MCHC (32-36) g/dL RDW (11.5-14.0) % Plt Count (150-450) x10^3/uL MPV (7.5-11.0) fL Gran % (36.0-66.0) % Immature Gran % (Auto) (0.00-0.4) % Nucleat RBC Rel Count (0.00-0.1) % Eos # (Auto) (0-0.5) x10^3/uL Immature Gran # (Auto) (0.00-0.03) x10^3u/L Absolute Lymphs (auto) (1.0-4.6) x10^3/uL Absolute Monos (auto) (0.0-1.3) x10^3/uL Absolute Nucleated RBC (0.00-0.01) x10^3u/L Lymphocytes % (24.0-44.0) % Monocytes % (0.0-12.0) % Eosinophils % (0.00-5.0) % Basophils % (0.0-0.4) % Absolute Granulocytes (1.4-6.9) x10^3/uL Basophils # (0-0.4) x10^3/uL PT (9.4-12.5) SECONDS INR (0.8-3.0) D-Dimer (0.0-0.50) mg/L Sodium (135-145) mmol/L Potassium (3.5-5.1) mmol/L Chloride (98-107) mmol/L Carbon Dioxide (22-30) mmol/L Anion Gap (5-15) MEQ/L BUN (7-17) mg/dL Creatinine (0.52-1.04) mg/dL Estimated GFR ML/MIN Glucose (74-106) mg/dL Calcium (8.4-10.2) mg/dL Magnesium (1.6-2.3) mg/dL Total Bilirubin (0.2-1.3) mg/dL AST (14-36) U/L ALT (0-35) U/L Alkaline Phosphatase (38-126) U/L Troponin I < 0.012 0.018 (0.000-0.033) ng/mL NT-Pro-B Natriuret Pep (<300) pg/mL Serum Total Protein (6.3-8.2) g/dL Albumin (3.5-5.0) g/dL Influenza Type A Ag NEGATIVE (NEGATIVE) Influenza Type B Ag NEGATIVE (NEGATIVE) RSV (PCR) NEGATIVE (NEGATIVE) SARS-CoV-2 (PCR) NEGATIVE (NEGATIVE) 07/12/23 07/13/23 07/13/23 Range/Units 19:24 05:13 05:13 WBC 6.0 (4.0-10.5) x10^3/uL RBC 4.24 (4.1-5.4) x10^6/uL Hgb 13.1 (12.0-16.0) g/dL Hct 37.9 (35-47) % MCV 89.4 (78-100) fL MCH 30.9 (26-32) pg MCHC 34.6 (32-36) g/dL RDW 13.7 (11.5-14.0) % Plt Count 328 (150-450) x10^3/uL MPV 9.8 (7.5-11.0) fL Gran % 47.5 (36.0-66.0) % Immature Gran % (Auto) 0.3 (0.00-0.4) % Nucleat RBC Rel Count 0.0 (0.00-0.1) % Eos # (Auto) 0.45 (0-0.5) x10^3/uL Immature Gran # (Auto) 0.02 (0.00-0.03) x10^3u/L Absolute Lymphs (auto) 2.03 (1.0-4.6) x10^3/uL Absolute Monos (auto) 0.58 (0.0-1.3) x10^3/uL Absolute Nucleated RBC 0.00 (0.00-0.01) x10^3u/L Lymphocytes % 34.1 (24.0-44.0) % Monocytes % 9.7 (0.0-12.0) % Eosinophils % 7.6 H (0.00-5.0) % Basophils % 0.8 (0.0-0.4) % Absolute Granulocytes 2.83 (1.4-6.9) x10^3/uL Basophils # 0.05 (0-0.4) x10^3/uL PT (9.4-12.5) SECONDS INR (0.8-3.0) D-Dimer (0.0-0.50) mg/L Sodium 137 (135-145) mmol/L Potassium 3.6 (3.5-5.1) mmol/L Chloride 105 (98-107) mmol/L Carbon Dioxide 22 (22-30) mmol/L Anion Gap 12.9 (5-15) MEQ/L BUN 23 H (7-17) mg/dL Creatinine 1.37 H (0.52-1.04) mg/dL Estimated GFR 40.0 ML/MIN Glucose 95 (74-106) mg/dL Calcium 9.1 (8.4-10.2) mg/dL Magnesium (1.6-2.3) mg/dL Total Bilirubin 0.60 (0.2-1.3) mg/dL AST 27 (14-36) U/L ALT 22 (0-35) U/L Alkaline Phosphatase 37 L (38-126) U/L Troponin I 0.028 (0.000-0.033) ng/mL NT-Pro-B Natriuret Pep (<300) pg/mL Serum Total Protein 7.5 (6.3-8.2) g/dL Albumin 4.2 (3.5-5.0) g/dL Influenza Type A Ag (NEGATIVE) Influenza Type B Ag (NEGATIVE) RSV (PCR) (NEGATIVE) SARS-CoV-2 (PCR) (NEGATIVE) - Radiology Exams Ordered Rad Exams-Entire Visit: Radiology Procedures Category Date Time Status CHEST WITH CONTRAST [CT] Stat Exams 07/12/23 13:13 Completed ECHO W/2D AND DOPPLER [US] Routine Exams 07/12/23 16:58 Ordered VENOUS BILATERAL EXTREMITY [US] Stat Exams 07/12/23 13:15 Completed - Procedures and Test Procedures and Tests throughout Hospitalization: Therapy Orders & Screens 07/12/23 16:15 Oxygen Nasal Cannula 2 lpm Comment: 07/12/23 16:52 Respiratory Therapy Consult ONCE Comment: Reason For Exam: Diagnosis: Bilateral pulmonary emboli Discharge Exam General Appearance: no apparent distress, alert Neurologic Exam: alert, oriented x 3, cooperative, normal mood/affect, nml cerebellar function, sensation nml, No motor deficits Eye Exam: PERRL, EOMI, eyes nml inspection Ears, Nose, Throat Exam: normal ENT inspection, pharynx normal, moist mucous membranes Neck Exam: normal inspection, non-tender, supple, full range of motion Respiratory Exam: normal breath sounds, lungs clear, No respiratory distress Cardiovascular Exam: regular rate/rhythm, normal heart sounds Gastrointestinal/Abdomen Exam: soft, No tenderness, No mass Pelvic Exam: deferred Rectal Exam: deferred Back Exam: normal inspection, normal range of motion, No CVA tenderness, No vertebral tenderness Extremity Exam: normal inspection, normal range of motion Skin Exam: normal color, warm, dry Final Diagnosis/Problem List - Final Discharge Diagnosis/Problem (1) Bilateral pulmonary embolism Current Visit: Yes Status: Acute Assessment & Plan: - CT chest reviewed demonstrating bilateral PEs in the right upper and lower lobes, and left lower lobe. - Venous doppler per babcock tester/tech read showing right lower extremity does show a proximal to distal DVT of the posterior tibial vein - Tele - Supplemental oxygen with goal spo2 >92% - RT eval for home O2 need- none required- 96% on RA - ABG if significant hypoxia/lethargy - Lovenox given in ED, - Eliquis 10mg po bid x 7 days then 5mg po bid there after- started this AM - No need for echo at this time no evidence of heart strain. Code(s): I26.99 - OTHER PULMONARY EMBOLISM WITHOUT ACUTE COR PULMONALE (2) Shortness of breath Current Visit: Yes Status: Acute Assessment & Plan: - 2:2 BL PE - increased with activity - RA 96% today Code(s): R06.02 - SHORTNESS OF BREATH (3) Right leg DVT Current Visit: Yes Status: Acute Assessment & Plan: -Venous doppler per babcock tester/tech read showing right lower extremity does show a proximal to distal DVT of the posterior tibial vein -see PE, plan for Eliquis Code(s): I82.401 - ACUTE EMBOLISM AND THOMBOS UNSP DEEP VEINS OF R LOW EXTREM (4) PETE (acute kidney injury) Current Visit: Yes Status: Acute Assessment & Plan: -Monitor renal/lytes -500ml bolus given prior to CT, continue IVF -Monitor renal/lytes daily -Avoid JO/ARB/NSAIDS/diuretics -hold HCTZ/Avapro 07/12 - Creat 1.37- unknown baseline- will need Op lab f/u Code(s): N17.9 - ACUTE KIDNEY FAILURE, UNSPECIFIED (5) HTN (hypertension) Current Visit: Yes Status: Chronic Assessment & Plan: -Stable, continue amlodipine, hold HCTZ/Avapro Code(s): I10 - ESSENTIAL (PRIMARY) HYPERTENSION (6) Hypothyroid Current Visit: Yes Status: Chronic Assessment & Plan: -continue levothyroxine Code(s): E03.9 - HYPOTHYROIDISM, UNSPECIFIED (7) Sinus bradycardia Current Visit: Yes Status: Chronic Assessment & Plan: - pt reports this is chronic with HR in 40's to 50's at night - Consider stopping clonidine at HS. Code(s): R00.1 - BRADYCARDIA, UNSPECIFIED - Discharge Discharge Date: 07/13/23 Disposition: Home, Self-Care Condition: Stable Prescriptions: New Apixaban [Eliquis] 5 mg PO BID 30 Days #60 tab Apixaban [Eliquis] 10 mg PO BID 7 Days #26 tab Continue Fenofibrate [Fenoglide] 160 mg PO DAILY Multivitamins,Therapeutic Tab* [Theragran Multivitamin] 1 tab PO DAILY Levothyroxine Sodium 88 Mcg [Synthroid 88 Mcg] 88 mcg PO DAILY Clonidine HCl 0.1 mg [Clonidine 0.1 mg Tablet] 0.1 mg PO HS hydroCHLOROthiazide [Hydrochlorothiazide] 12.5 mg PO DAILY Irbesartan [Avapro] 300 mg PO DAILY Amlodipine Besylate 5 mg [Norvasc 5 mg] 5 mg PO BID Discontinued Aspirin EC 81 mg [Ecotrin 81 mg] 81 mg PO DAILY Additional Instructions: Tomorrow afternoon 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 For the first 7 days you will be taking a higher dose. You will have already received 3 doses when you picking crew supervisor the starter pack. Therefore, you will not need 3 doses. Continue otherwise per directions. Follow up with: DOCTOR,NO FAMILY [Primary Care Provider] -
[2023-07-13] MEDS: THERAGRAN MULTIVITAMIN PO SCH (10:31)
[2023-07-13] MEDS: ELIQUIS 2.5 MG TABLET PO SCH (10:32)
[2023-07-13] MEDS: Tricor 145 MG PO SCH (10:32)
[2023-07-13] MEDS: SYNTHROID 88 MCG PO SCH (10:32)
[2023-07-13 13:19] VITALS: BP 152/68; PULSE 59; O2SAT 92
== END 2023-07-13 13:10 | disposition home or self-care (01) ==
LOC: ED 11:24 → MED SURG 16:08
PROVIDERS: ADMIT Internal Medicine; ATTEND Internal Medicine
DX: I26.99 Other pulmonary embolism without acute cor pulmonale (principal); R06.02 Shortness of breath; I82.401 Acute embolism and thrombosis of unspecified deep veins of right lower extremity; N17.9 Acute kidney failure, unspecified; I10 Essential (primary) hypertension; E03.9 Hypothyroidism, unspecified; R00.1 Bradycardia, unspecified; E78.5 Hyperlipidemia, unspecified; Z79.899 Other long term (current) drug therapy
CPT/HCPCS: 0241U; 36000; 36415; 71260; 80053; 83735; 83880; 84484; 85025; 85379; 85610; 87040; 93005; 93041; 93268; 93970; 94760; 94762; 96360; 96372; 99285; 99291; G0378; Q3014; J1650; A9270-GY

== ENCOUNTER 2023-09-25 14:01 | Inpatient (IN) | payer MEDICARE ==
--- NOTE | 2023-09-25 14:06 | ERPHSYRPT ---
- History of Present Illness Time Seen by Provider: 09/25/23 14:05 Source: patient, family Exam Limitations: no limitations Physician History: This is a 78-year-old white female patient of Dr. Tan who presents to the emergency department by private vehicle and brought in by her because of suprapubic abdominal pain, urgency, dysuria and frequency symptoms. Patient was seen at her primary care physician's office and after urinalysis studies confirmed a urinary tract infection, patient was placed on Bactrim twice a day. Despite the treatment with antibiotics, her symptoms have not improved. In fact, she feels the pain and pressure in the suprapubic region have worsened. She also noticed some blood in her urine. Patient has a history of hypertension, hypothyroidism and is on Eliquis secondary to history of DVT and pulmonary embolus in the past. Timing/Duration: day(s) (3), worse Activites at Onset: none Quality: aching Onset Location: suprapubic Pain Radiation: none Severity of Pain-Max: moderate Severity of Pain-Current: mild (To moderate) Prior abdominal problems: none Sexual intercourse history: non-contributory Modifying Factors: Improves With: urinating (You worsens with dysuria) Associated Symptoms: dysuria, urinary frequency Allergies/Adverse Reactions: No Known Drug Allergies Allergy (Verified 09/25/23 14:29) Home Medications: Fenofibrate [Fenoglide] 160 mg PO DAILY 01/05/21 [History] Amlodipine Besylate 5 mg [Norvasc 5 mg] 5 mg PO BID 07/12/23 [History] Clonidine HCl 0.1 mg [Clonidine 0.1 mg Tablet] 0.1 mg PO HS 07/12/23 [History] Irbesartan [Avapro] 300 mg PO DAILY 07/12/23 [History] Levothyroxine Sodium 88 Mcg [Synthroid 88 Mcg] 88 mcg PO DAILY 07/12/23 [History] Multivitamins,Therapeutic Tab* [Theragran Multivitamin] 1 tab PO DAILY 07/12/23 [History] Calcium Carb, Citrate/Vit D3 [Calcium + D3 ER Tablet] 1 tablet PO BID 09/25/23 [History] Hx Tetanus, Diphtheria Vaccination/Date Given: Yes Hx Influenza Vaccination/Date Given: Yes Hx Pneumococcal Vaccination/Date Given: No Travel Risk - Emerging Infectious Disease Are you exhibiting symptoms associated with any current EIDs: Yes Symptoms: Shortness of Breath - Review of Systems Constitutional: No Symptoms Eyes: No Symptoms Ears, Nose, & Throat: No Symptoms Respiratory: No Symptoms Cardiac: No Symptoms Abdominal/Gastrointestinal: Abdominal Pain (Prepubic pain and pressure) Genitourinary Symptoms: Dysuria, Frequency, Urgency, No Flank Pain Musculoskeletal: No Symptoms Skin: No Symptoms Neurological: No Symptoms Psychological: No Symptoms Endocrine: No Symptoms Hematologic/Lymphatic: No Symptoms Immunological/Allergic: No Symptoms All Other Systems: Reviewed and Negative - Past Medical History Pertinent Past Medical History: Yes Cardiac History: Deep Vein Thrombosis, High Cholesterol, Hypertension, Other Respiratory History: Pulmonary Embolism Endocrine Medical History: Hyperthyroidism Other Medical History: leaking heart valve - Past Surgical History Past Surgical History: Yes Neuro Surgical History: No Pertinent History Cardiac: No Pertinent History Respiratory: No Pertinent History Gastrointestinal: No Pertinent History Genitourinary: No Pertinent History Musculoskeletal: No Pertinent History Female Surgical History: Tubal Ligation - Social History Smoking Status: Never smoker Exposure to second hand smoke: No Drug Use: none Patient Lives Alone: No () - Social Determinants of Health Will the patient participate in the screening: Yes Do you worry about a steady place to live?: No In the past 12 months,have you had to go without utilities?: No Transportation Issues: No Has anyone in your support network made you feel unsafe?: No Have you or anyone in your house had to go without enough: No - Nursing Vital Signs Nursing Vital Signs: Initial Vital Signs Temperature 98.5 F 09/25/23 14:06 Pulse Rate 70 09/25/23 14:06 Blood Pressure 156/80 09/25/23 14:06 O2 Sat by Pulse Oximetry 96 09/25/23 14:06 Pain Scale Pain Intensity 2 - Physical Exam General Appearance: no apparent distress, alert, anxiety Eye Exam: PERRL/EOMI, eyes nml inspection Ears, Nose, Throat Exam: normal ENT inspection, moist mucous membranes Neck Exam: normal inspection, non-tender, supple, full range of motion Respiratory Exam: normal breath sounds, lungs clear, airway intact, No chest tenderness, No respiratory distress Cardiovascular Exam: regular rate/rhythm, normal heart sounds, normal peripheral pulses Gastrointestinal/Abdomen Exam: soft, normal bowel sounds, No tenderness Pelvic Exam: not done Rectal Exam: not done Back Exam: normal inspection, normal range of motion, No CVA tenderness, No vertebral tenderness Extremity Exam: normal inspection, normal range of motion, pelvis stable Neurologic Exam: alert, oriented x 3, cooperative, solar sales consultant II-XII nml as tested, sensation nml Skin Exam: normal color, warm, dry Lymphatic Exam: No adenopathy SpO2 Interpretation: normal O2 Delivery: Room Air - Course Nursing assessment & vital signs reviewed: Yes Ordered Tests: Active Orders 24 hr Category Date Time Status IV Insertion STAT Care 09/25/23 14:39 Active ABDOMEN AND PELVIS W/0 CONTRAS [CT] Stat Exams 09/25/23 14:39 Completed AMYLASE Stat Lab 09/25/23 14:35 Completed CBC W DIFF Stat Lab 09/25/23 14:35 Completed CMP Stat Lab 09/25/23 14:35 Completed LIPASE Stat Lab 09/25/23 14:35 Completed UA W/RFX UR CULTURE Stat Lab 09/25/23 14:09 Completed Medication Summary Generic Name Dose Route Start Last Admin Trade Name Freq PRN Reason Stop Dose Admin Sodium Chloride 1,000 mls @ 125 mls/hr 09/25/23 16:00 09/25/23 15:59 Sodium Chloride 0.9% 1000 Ml IV 10/25/23 15:59 125 mls/hr .Q8H KLAUS Administration Discontinued Medications Generic Name Dose Route Start Last Admin Trade Name Freq PRN Reason Stop Dose Admin Piperacillin Sod/Tazobactam 100 mls @ 200 mls/hr 09/25/23 15:48 09/25/23 15:59 Sod 3.375 gm/ Sodium Chloride IV 09/25/23 16:17 200 mls/hr STAT ONE Administration Sodium Chloride Confirm 09/25/23 15:53 Sodium Chloride 100ml Mini-Bag Plus Administered 09/25/23 15:54 Dose 100 mls @ ud IV .STK-MED ONE Morphine Sulfate 4 mg 09/25/23 15:39 09/25/23 15:43 Morphine Sulfate 4 Mg/Ml Injection IV 09/25/23 15:40 4 mg STAT ONE Administration Morphine Sulfate Confirm 09/25/23 15:41 Morphine Sulfate 4 Mg/Ml Injection Administered 09/25/23 15:42 Dose 4 mg .ROUTE .STK-MED ONE Ondansetron HCl 4 mg 09/25/23 15:39 09/25/23 15:43 Ondansetron Hcl 4 Mg/2 Ml Vial IV 09/25/23 15:40 4 mg STAT ONE Administration Ondansetron HCl Confirm 09/25/23 15:41 Ondansetron Hcl 4 Mg/2 Ml Vial Administered 09/25/23 15:42 Dose 4 mg .ROUTE .STK-MED ONE Piperacillin Sod/Tazobactam Sod Confirm 09/25/23 15:52 Piperacillin/Tazobactam Sodium 3.375 Gm Vial Administered 09/25/23 15:53 Dose 3.375 gm IV .STK-MED ONE Lab/Rad Data: Laboratory Result Diagrams 09/25/23 14:35 09/25/23 14:35 Laboratory Results 09/25/23 09/25/23 09/25/23 Range/Units 14:35 14:35 14:09 WBC 17.5 H (3.98-10.04) x10^3/uL RBC 4.01 (3.93-5.22) x10^6/uL Hgb 12.2 (11.2-15.7) g/dL Hct 35.7 (34.1-44.9) % MCV 89.0 (79.4-94.8) fL MCH 30.4 (25.6-32.2) pg MCHC 34.2 (32.2-35.5) g/dL RDW 13.8 (11.7-14.4) % Plt Count 397 H (182-369) x10^3/uL MPV 10.2 (9.4-12.3) fL Gran % 81.4 H (34.0-71.1) % Immature Gran % (Auto) 0.7 H (0.001-0.429) % Nucleat RBC Rel Count 0.0 (0.00-0.2) % Eos # (Auto) 0.15 (0.04-0.36) x10^3/uL Immature Gran # (Auto) 0.13 H (0.001-0.031) x10^3u/L Absolute Lymphs (auto) 1.75 (1.18-3.74) x10^3/uL Absolute Monos (auto) 1.17 H (0.24-0.86) x10^3/uL Absolute Nucleated RBC 0.00 (0.00-0.012) x10^3u/L Lymphocytes % 10.0 L (19.3-51.7) % Monocytes % 6.7 (4.7-12.5) % Eosinophils % 0.9 (0.7-5.8) % Basophils % 0.3 (0.1-1.2) % Absolute Granulocytes 14.23 H (1.56-6.13) x10^3/uL Basophils # 0.05 (0.01-0.08) x10^3/uL Sodium 135 (135-145) mmol/L Potassium 3.8 (3.5-5.1) mmol/L Chloride 102 (98-107) mmol/L Carbon Dioxide 19 L (22-30) mmol/L Anion Gap 17.9 H (5-15) MEQ/L BUN 22 H (7-17) mg/dL Creatinine 1.43 H (0.52-1.04) mg/dL Estimated GFR 38.0 ML/MIN Glucose 120 H (74-106) mg/dL Calcium 9.9 (8.4-10.2) mg/dL Total Bilirubin 0.50 (0.2-1.3) mg/dL AST 25 (14-36) U/L ALT 20 (0-35) U/L Alkaline Phosphatase 51 (38-126) U/L Serum Total Protein 7.1 (6.3-8.2) g/dL Albumin 4.1 (3.5-5.0) g/dL Amylase 62 (30-110) U/L Lipase 92 (23-300) U/L Urine Color Yellow (Yellow) Urine Appearance Clear (Clear) Urine pH 6.0 (4.6-8.0) Ur Specific [place] <=1.005 (1.005-1.030) Urine Protein Negative (Negative) Urine Glucose (UA) Negative (Negative) mg/dL Urine Ketones Negative (Negative) Urine Blood Negative (Negative) Urine Nitrite Negative (Negative) Urine Bilirubin Negative (Negative) Urine Urobilinogen 0.2 (0.2) mg/dL Ur Leukocyte Esterase Negative (Negative) U Hyaline Cast (Auto) NONE SEEN (0-2) /LPF Urine Microscopic RBC 0-2 (0-5) /HPF Urine Microscopic WBC 0-2 (0-5) /HPF Ur Epithelial Cells None Seen (None Seen) /HPF Urine Bacteria None Seen (None Seen) /HPF Urine Culture Reflexed NO (NO) - Progress Progress: improved, re-examined Air Movement: good Progress Note: 09/25/23 14:48 My medical decision making and the assignment of moderate complexity to this patient's medical issue today is based on review of the patient's past medical history, review of the patient's medication list, review patient drug allergy list, history present illness and physical findings on examination. The workup in this patient includes intravenous line placement, CBC, CMP, amylase, lipase, urinalysis, CT scan of the abdomen pelvis without contrast. Differential diagnosis includes but is not limited to nephrolithiasis, ureterolithiasis, colitis, diverticulitis, cystitis, appendicitis 09/25/23 15:44 I interpreted the patient's laboratory data results. Patient has a l eukocytosis. Other laboratory data results interpreted do not suggest an acute, emergent medical issue. I just received a call from our hospital radiologist, Dr. Daugherty. This patient, on CAT scan of the abdomen pelvis without contrast shows acute appendicitis without perforation. The impression on the finalized report states prominent appendix. There is periappendiceal stranding with tiny free fluid but no walled off fluid collection or free air. 09/25/23 15:47 Patient states that she had small amount of solid food at noon and a glass of water at 1 PM. 09/25/23 17:13 I spoke with Cristóbal Kirk who is her general surgeon on at this time. He will be taking the patient to the operating room from the emergency room. The patient is already received Zosyn 3.[address] Kirk was informed that the patient did take her Eliquis this morning. I contacted the telehospitalist Dr. Herrera and informed her of the need to care for this patient postoperatively at the request of Dr. Kirk. She then asked me to clarify with Dr. Kirk as to whether or not she also needs to perform the presurgical history and physical exam or merely care for this patient postoperatively. We have placed a call back into Dr. Cristóbal Kirk. Blood Culture(s) Obtained: No Antibiotics given: Yes Counseled pt/family regarding: lab results, diagnosis, rad results Medical Desision Making - Independent Historian Additional History obtained from: Spouse - Diagnostic Testing Diagnostic test were ordered, analyzed, and reviewed by me: Yes Radiological Interpretation: Reviewed by me, Teleradiologist Report - Risk of complications The pt has a high risk of morbidity or mortality based on: Need for emergency major surgery, Decision regarding hospitilization or escalation of hosp level of care - Departure Departure Disposition: Release to OR/ARC Clinical Impression: Acute appendicitis Condition: Stable Critical Care Time: No Referrals: RAMÍREZ TAN MD [Primary Care Provider] - Follow up/PCP as directed
[2023-09-25 14:29] LABS: Appearance Clear (Clear); Bacteria None Seen /HPF (None Seen); Bilirubin Negative (Negative); Blood Negative (Negative); Epithelial Cells None Seen /HPF (None Seen); Glucose, Urine Negative (Negative); Hyaline Casts NONE SEEN /LPF (0-2); Ketones Negative (Negative); Leukocyte Esterase Negative (Negative); Nitrite Negative (Negative); Protein,Urine Dip Negative (Negative); RBC 0-2 /HPF (0-5); Specific Gravity <=1.005 (1.005-1.030); Urobilinogen 0.2 mg/dL (0.2); WBC 0-2 /HPF (0-5)
[2023-09-25 14:31] LABS: ADD URINE CULTURE? NO (NO)
[2023-09-25 14:49] LABS: Absolute Neutrophil Ct (ANC) 14.23 x10^3/uL (1.56-6.13); BASOPHIL % 0.3 % (0.1-1.2); Basophil (Absolute #) 0.05 x10^3/uL (0.01-0.08); Eosinophil % 0.9 % (0.7-5.8); Eosinophil (Absolute #) 0.15 x10^3/uL (0.04-0.36); Hematocrit 35.7 % (34.1-44.9); Hemoglobin 12.2 g/dL (11.2-15.7); IMMATURE GRAN # 0.13 x10^3u/L (0.001-0.031); IMMATURE GRAN % 0.7 % (0.001-0.429); Lymphocyte (Absolute #) 1.75 x10^3/uL (1.18-3.74); Mean Corpuscular Hemoglobin 30.4 pg (25.6-32.2); Mean Corpuscular Hgb Concent. 34.2 g/dL (32.2-35.5); Mean Platelet Volume 10.2 fL (9.4-12.3); Monocyte (Absolute #) 1.17 x10^3/uL (0.24-0.86); Monocytes % 6.7 % (4.7-12.5); Neutrophil % 81.4 % (34.0-71.1); Platelet Count 397 x10^3/uL (182-369); Red Blood Count 4.01 x10^6/uL (3.93-5.22); Red Cell Distribution Width 13.8 % (11.7-14.4); White Blood Count 17.5 x10^3/uL (3.98-10.04)
[2023-09-25 15:03] LABS: ALBUMIN 4.1 g/dL (3.5-5.0); ANION GAP 17.9 MEQ/L (5-15); BILIRUBIN,TOTAL 0.5 mg/dL (0.2-1.3); Calcium 9.9 mg/dL (8.4-10.2); Creatinine 1 1.43 mg/dL (0.52-1.04); Potassium 3.8 mmol/L (3.5-5.1); Total Protein 7.1 g/dL (6.3-8.2)
[2023-09-25] MEDS ORDERED: Zofran 4 MG/2 ML VIAL ONE ×2 (15:41→19:44)
[2023-09-25] MEDS ORDERED: MORPHINE SULFATE 4 MG INJ ONE (15:41)
[2023-09-25] MEDS: Zofran 4 MG/2 ML VIAL IV ONE (15:43)
[2023-09-25] MEDS: MORPHINE SULFATE 4 MG INJ IV ONE (15:43)
--- NOTE | 2023-09-25 15:49 | XRAY ---
Indication: Suprapubic pain/pressure 4 days. Multiple contiguous axial images obtained through the abdomen and pelvis without contrast. Comparison: None Lung bases demonstrates minimal fibrosis/scarring. No infiltrate or effusion. Heart not enlarged. Small hiatal hernia. Noncontrasted stomach and bowel loops appear nonobstructed. Markedly prominent appendix up to 3 cm diameter with periappendiceal stranding favoring acute appendicitis. Tiny free fluid but no walled off fluid collection or free air. Remaining liver, gallbladder, pancreas, spleen, adrenal glands, kidneys, ureters, bladder, and uterus are unremarkable for noncontrast exam. Mild scattered aortoiliac calcifications without AAA. Osseous structures intact with mild degenerative changes throughout thoracolumbar spine and mild dorsal scoliosis centered at thoracolumbar junction. Impression: 1. CT findings favoring acute appendicitis with tiny free fluid. 2. Incidental hiatal hernia, arteriosclerotic disease, and chronic bony findings Comment: Telephone report given to ordering clinician, Dr. Nunn at 1544 hrs. on September 25, 2023.
[2023-09-25] MEDS ORDERED: PIPERACILLIN/TAZOBACTAM IV ONE (15:52)
[2023-09-25] MEDS ORDERED: Sodium Chloride 0.9% 1000 ML 1,000 ML ONE (15:53)
[2023-09-25] MEDS ORDERED: Sodium Chloride 100ML MINI-BAG PLUS 100 ML IV ONE (15:53)
[2023-09-25] MEDS: PIPERACILLIN/TAZOBACTAM 3.375 GM in Sodium Chloride 100ML MINI-BAG PLUS 100 ML IV ONE (15:59)
[2023-09-25] MEDS: Sodium Chloride 0.9% 1000 ML 1,000 ML IV SCH (15:59)
[2023-09-25] MEDS ORDERED: Sensorcaine 0.25% 10 ML ONE (18:12)
[2023-09-25] MEDS ORDERED: ROCURONIUM BROMIDE IV ONE (18:22)
[2023-09-25] MEDS ORDERED: DIPRIVAN 200 MG/20 ML IV ONE (18:22)
[2023-09-25] MEDS ORDERED: Quelicin Fliptop 200 MG/10 ML ONE (18:22)
[2023-09-25] MEDS ORDERED: SUBLIMAZE 100 MCG/2 ML ONE ×2 (18:22→20:27)
[2023-09-25] MEDS ORDERED: Versed 2 MG/2 ML Injection ONE (18:23)
[2023-09-25] MEDS ORDERED: Ephedrine Sulfate 50 MG/ML ONE (18:59)
[2023-09-25] MEDS ORDERED: BRIDION 200MG/2ML IV ONE (19:44)
[2023-09-25] MEDS ORDERED: MORPHINE SULFATE 10 MG/ML ONE (19:46)
[2023-09-25] MEDS ORDERED: MORPHINE SULFATE 2 MG INJ ONE (20:50)
--- NOTE | 2023-09-25 22:51 | PCM.CONS ---
History of Present Illness - Date of Consult Date of Encounter: 09/25/23 Consulting Provider: EULA ROMERO MD Requesting Provider: Attending Provider: WILBER MEZA MD Primary Care Provider: PCP: RAMÍREZ DAWN Encounter: "The entirety of this encounter was performed via Telemedicine using audio and visual equipment with nursing assistance at bedside. Patient consented to telemedicine encounter." 78 y/o F with h/o DVT/PE in June, HTN, CKD3, and hypothyroidism, who was admitted with appendicitis. 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 She went to PCP and was told had UTI based on UA results and started on Bactrim. However, patient states pain continued to worsen despite the antibiotics, until it was "worse than having a baby." She denies any radiation of the pain, no fevers, nausea, diarrhea or constipation. She was eventually found to have acute appendicitis with trace free fluid but no jori abscess nor free air. Dr. Meza admitted the patient and took her to the OR this evening. She states currently the pain is well-controlled on meds, and she feels a little tired, but otherwise better than she has for a few days. We are consulted for co-management of her medical problems during her hospital stay. Patient notes that she had a leg DVT with PE in June; she has been on Eliquis without bleeding issues since then. Her last dose taken was this morning. - Reason for Consult Reason for Consult: co-management of medical problems cc:: The requesting physician will be sent a copy of the consult. - Review of Systems Constitutional: No Fever, No Lethargy, No Malaise Eyes: No Vision Changes, No Double Vision Ears, Nose, & Throat: Nose Congestion, No Throat Pain Respiratory: No Cough, No Short Of Breath Cardiac: No Chest Pain, No Edema Abdominal/Gastrointestinal: Abdominal Pain, No Nausea, No Vomiting, No Diarrhea, No Constipation, No Hematochezia, No Melena Genitourinary Symptoms: Dysuria, Frequency, Urgency All Other Systems: Reviewed and Negative Medications & Allergies Home Medications: Home Medication List Fenofibrate [Fenoglide] 160 mg PO DAILY 01/05/21 [History Confirmed 09/25/23] Amlodipine Besylate 5 mg [Norvasc 5 mg] 5 mg PO BID 07/12/23 [History Confirmed 09/25/23] Clonidine HCl 0.1 mg [Clonidine 0.1 mg Tablet] 0.1 mg PO HS 07/12/23 [History Confirmed 09/25/23] Irbesartan [Avapro] 300 mg PO DAILY 07/12/23 [History Confirmed 09/25/23] Levothyroxine Sodium 88 Mcg [Synthroid 88 Mcg] 88 mcg PO DAILY 07/12/23 [History Confirmed 09/25/23] Multivitamins,Therapeutic Tab* [Theragran Multivitamin] 1 tab PO DAILY 07/12/23 [History Confirmed 09/25/23] Apixaban [Eliquis] 5 mg PO BID 30 Days #60 tab 07/13/23 [Rx Confirmed 09/25/23] Calcium Carb, Citrate/Vit D3 [Calcium + D3 ER Tablet] 1 tablet PO BID 09/25/23 [History Confirmed 09/25/23] Allergies/Adverse Reactions: Allergies Allergy/AdvReac Type Severity Reaction Status Date / Time No Known Drug Allergies Allergy Verified 09/25/23 14:29 - Past Medical History Past Medical History: Yes Cardiac History: Deep Vein Thrombosis, High Cholesterol, Hypertension, Other Respiratory History: Pulmonary Embolism Endocrine Medical History: Hypothyroidism Comment: leaking heart valve - Past Surgical History Past Surgical History: Yes Neuro Surgical History: No Pertinent History Cardiac History: No Pertinent History Respiratory Surgery: No Pertinent History GI Surgical History: No Pertinent History Genitourinary Surgical Hx: No Pertinent History Musculskeletal Surgical Hx: No Pertinent History Female Surgical History: Tubal Ligation Significant Family History: no pertinent family hx - Social History Smoking Status: Never smoker Exposure to second hand smoke: No Alcohol: None Drug Use: none - Social Determinants of Health Will the patient participate in the screening: Yes Do you worry about a steady place to live?: No Do you have any problems with any of the following?: No known problems In the past 12 months,have you had to go without utilities?: No Have you or anyone in your house had to go without enough: No Transportation Issues: No Has anyone in your support network made you feel unsafe?: No Does the patient want assistance with any of the above?: No - Physical Exam Vital Signs: Vital Signs - 24 hr Temp Pulse Resp BP BP Pulse Ox 09/25/23 21:41 98.5 F 62 14 121/58 93 L 09/25/23 17:53 144/74 93 L 09/25/23 17:52 144/74 93 L 09/25/23 17:49 144/74 93 L 09/25/23 17:30 133/66 93 L 09/25/23 17:00 134/69 94 L 09/25/23 16:30 163/68 09/25/23 16:00 64 16 144/74 144/74 92 L 09/25/23 15:40 68 18 161/75 97 09/25/23 14:06 98.5 F 70 156/80 96 General Appearance: no apparent distress Neurologic Exam: alert, oriented x 3 Respiratory Exam: normal breath sounds, lungs clear Cardiovascular Exam: regular rate/rhythm, normal heart sounds, murmur (2/6 aortic regurgitation murmur) Gastrointestinal/Abdomen Exam: other (hypoactive but present bowel sounds) Results - Labs Lab/Micro Results: Lab Results-Last 24 Hours 09/25/23 09/25/23 09/25/23 Range/Units 14:09 14:35 14:35 WBC 17.5 H (3.98-10.04) x10^3/uL RBC 4.01 (3.93-5.22) x10^6/uL Hgb 12.2 (11.2-15.7) g/dL Hct 35.7 (34.1-44.9) % MCV 89.0 (79.4-94.8) fL MCH 30.4 (25.6-32.2) pg MCHC 34.2 (32.2-35.5) g/dL RDW 13.8 (11.7-14.4) % Plt Count 397 H (182-369) x10^3/uL MPV 10.2 (9.4-12.3) fL Gran % 81.4 H (34.0-71.1) % Immature Gran % (Auto) 0.7 H (0.001-0.429) % Nucleat RBC Rel Count 0.0 (0.00-0.2) % Eos # (Auto) 0.15 (0.04-0.36) x10^3/uL Immature Gran # (Auto) 0.13 H (0.001-0.031) x10^3u/L Absolute Lymphs (auto) 1.75 (1.18-3.74) x10^3/uL Absolute Monos (auto) 1.17 H (0.24-0.86) x10^3/uL Absolute Nucleated RBC 0.00 (0.00-0.012) x10^3u/L Lymphocytes % 10.0 L (19.3-51.7) % Monocytes % 6.7 (4.7-12.5) % Eosinophils % 0.9 (0.7-5.8) % Basophils % 0.3 (0.1-1.2) % Absolute Granulocytes 14.23 H (1.56-6.13) x10^3/uL Basophils # 0.05 (0.01-0.08) x10^3/uL Sodium 135 (135-145) mmol/L Potassium 3.8 (3.5-5.1) mmol/L Chloride 102 (98-107) mmol/L Carbon Dioxide 19 L (22-30) mmol/L Anion Gap 17.9 H (5-15) MEQ/L BUN 22 H (7-17) mg/dL Creatinine 1.43 H (0.52-1.04) mg/dL Estimated GFR 38.0 ML/MIN Glucose 120 H (74-106) mg/dL Calcium 9.9 (8.4-10.2) mg/dL Total Bilirubin 0.50 (0.2-1.3) mg/dL AST 25 (14-36) U/L ALT 20 (0-35) U/L Alkaline Phosphatase 51 (38-126) U/L Serum Total Protein 7.1 (6.3-8.2) g/dL Albumin 4.1 (3.5-5.0) g/dL Amylase 62 (30-110) U/L Lipase 92 (23-300) U/L Urine Color Yellow (Yellow) Urine Appearance Clear (Clear) Urine pH 6.0 (4.6-8.0) Ur Specific [place] <=1.005 (1.005-1.030) Urine Protein Negative (Negative) Urine Glucose (UA) Negative (Negative) mg/dL Urine Ketones Negative (Negative) Urine Blood Negative (Negative) Urine Nitrite Negative (Negative) Urine Bilirubin Negative (Negative) Urine Urobilinogen 0.2 (0.2) mg/dL Ur Leukocyte Esterase Negative (Negative) U Hyaline Cast (Auto) NONE SEEN (0-2) /LPF Urine Microscopic RBC 0-2 (0-5) /HPF Urine Microscopic WBC 0-2 (0-5) /HPF Ur Epithelial Cells None Seen (None Seen) /HPF Urine Bacteria None Seen (None Seen) /HPF Urine Culture Reflexed NO (NO) - Radiology Impressions Radiology Exams & Impressions: Radiology Procedures Category Date Time Status ABDOMEN AND PELVIS W/0 CONTRAS [CT] Stat Exams 09/25/23 14:[address] Abd/Pelvis - acute appendicitis, with tiny amount of free fluid but no wall, no free air Assessment/Plan (1) Acute appendicitis Current Visit: Yes Status: Acute Assessment & Plan: 78 y/o F with h/o recent PE, HTN, CKD3, and hypothyroidism, here with acute appendicitis. Medicine is consulted for co-management of her medical co-morbi dities. ## Appendicitis - s/p appendectomy with Dr. Meza today. On IV fluids, antibiotics, clear liquid diet. - agree with fluids and clear liquid diet - defer to primary for when to advance diet further - can consider stopping antibiotics now that source removed ## DVT/PE - patient had thrombosis event in June. She is still in her 3-month window for highest risk of repeat thrombosis, but the most urgent time period to control worsening thrombosis is in the first two weeks. As such, temporarily holding the Eliquis is reasonable, for a short duration. Laparoscopic appendectomy remains relatively low risk for bleeding. As such, Eliquis is typically restarted the next day after surgery. - hold eliquis tonight - resume Eliquis 5 mg BID tomorrow ## Hypertension - BP currently well-controlled, but patient is relatively low BP (for her) in immediate post-op state - hold home clonidine 0.1 qHS; will resume tomorrow - resume home amlodipine 5 BID tonight - resume home irbesartan 300 daily tomorrow ## CKD3 - patient is at her baseline Cr around 1.3-1.4. It is appropriate to be on ARB to prevent progression of CKD, and can remain on it perioperatively. - resume irbesartan 300 mg daily ## hypothyroidism - continue Synthroid 88 mcg daily We will continue to follow along with this patient. Code(s): K35.80 - UNSPECIFIED ACUTE APPENDICITIS
[2023-09-25] MEDS: Lactated Ringers 1,000 ML IV SCH (22:53)
[2023-09-26] MEDS ORDERED: PIPERACILLIN/TAZOBACTAM 3.375 GM in Sodium Chloride 100ML MINI-BAG PLUS 100 ML IV SCH
[2023-09-26] MEDS ORDERED: Piperacillin/Tazobactam 2.25 GM IV ONE ×2 (00:04→05:44)
[2023-09-26] MEDS ORDERED: Sodium Chloride 100ML MINI-BAG PLUS 100 ML IV ONE ×2 (00:05→05:45)
[2023-09-26] MEDS: Piperacillin/Tazobactam 2.25 GM 2.25 GM in Sodium Chloride 100ML MINI-BAG PLUS 100 ML IV SCH (00:10)
[2023-09-26] MEDS: MORPHINE SULFATE 2 MG INJ IV PRN (03:19)
[2023-09-26] MEDS: NORVASC 5 MG PO SCH (03:52)
[2023-09-26 04:40] LABS: Hematocrit 33.1 % (34.1-44.9); Hemoglobin 11.1 g/dL (11.2-15.7); Mean Cell Volume 90.7 fL (79.4-94.8); Mean Corpuscular Hemoglobin 30.4 pg (25.6-32.2); Mean Corpuscular Hgb Concent. 33.5 g/dL (32.2-35.5); Mean Platelet Volume 9.9 fL (9.4-12.3); Platelet Count 377 x10^3/uL (182-369); Red Blood Count 3.65 x10^6/uL (3.93-5.22); Red Cell Distribution Width 14.2 % (11.7-14.4); White Blood Count 16.3 x10^3/uL (3.98-10.04)
[2023-09-26 05:09] LABS: ANION GAP 15.9 MEQ/L (5-15); Calcium 8.7 mg/dL (8.4-10.2); Creatinine 1 1.1 mg/dL (0.52-1.04); EST GLOMERULAR FILTRATION RATE 52.1 ML/MIN; PREALBUMIN 10.19 mg/dL (17.6-36.0); Potassium 4.1 mmol/L (3.5-5.1)
[2023-09-26] MEDS: SYNTHROID 88 MCG PO SCH (08:33)
[2023-09-26] MEDS: Avapro 150 MG PO SCH (09:14)
--- NOTE | 2023-09-26 09:22 | PCM.NOTE ---
Date and Time: 09/26/23916 Subjective Assessment: 09/26/23 78 y/o F with h/o DVT/PE in June, HTN, CKD3, and hypothyroidis. She was was admitted 09/25/23 with appendicitis. 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 She went to PCP and was told had UTI based on UA results and started on Bactrim. However, patient states pain continued to worsen despite the antibiotics, until it was "worse than having a baby." She denies any radiation of the pain, no fevers, nausea, diarrhea or constipation. She was eventually found to have acute appendicitis with trace free fluid but no jori abscess nor free air. Dr. Kirk admitted the patient and took her to the OR this evening. She states currently the pain is well-controlled on meds, and she feels a little tired, but otherwise better than she has for a few days. We are consulted for co-management of her medical problems during her hospital stay. Patient notes that she had a leg DVT with PE in June; she has been on Eliquis without bleeding issues since then. Her last dose taken was yesterday morning. Will Ask GS if ok to continue Eliquis today. Continue antibiotics and IV fluids. Discussed with pt and nurse to the need for pt to get up and walk d/t gas pains this AM. MARIE drain in place and 75ml out last night. She denies CP, SOB, N/V/D. She ate one jello cup this am and does not feel like eating anything more at this time. Per surgery transition diet when able to tolerate. <CLOVER MARTINEZ - Last Filed: 09/26/23 09:17> Date and Time: 09/26/232103 <PAUL EARL - Last Filed: 09/26/23 21:05> - Review of Systems Constitutional: No Fever, No Chills Eyes: No Symptoms Ears, Nose, & Throat: No Symptoms Respiratory: No Cough, No Short Of Breath Cardiac: No Chest Pain, No Edema, No Syncope Abdominal/Gastrointestinal: Abdominal Pain (LLQ), No Nausea, No Vomiting, No D iarrhea Genitourinary Symptoms: No Dysuria Musculoskeletal: No Back Pain, No Neck Pain Skin: No Rash Neurological: No Dizziness, No Focal Weakness, No Sensory Changes Psychological: No Symptoms Endocrine: No Symptoms Hematologic/Lymphatic: No Symptoms Immunological/Allergic: No Symptoms <CLOVER MARTINEZ - Last Filed: 09/26/23 09:17> Objective Exam General Appearance: no apparent distress, alert Neurologic Exam: alert, oriented x 3, cooperative, normal mood/affect, nml cerebellar function, sensation nml, No motor deficits Skin Exam: normal color, warm, dry Wound Assessment: Skin/Wound Assessment Wound/Incision Assessment Start: 09/25/23 22:21 Text: Status: Active Freq: Q6H Protocol: Document 09/26/23 08:06 JOSIAH (Rec: 09/26/23 08:08 [facility] [id number]) Wound/Incision Assessment Left Abdomen Wound Assessment Shift Assessment Wound Type Incision Wound Stage Non Pressure Wound Dressing Status Dry & Intact General Appearance Asymptomatic Primary Dressing Gauze Roll/Wrap Comment laproscopic surgical wound; steri strips, gauze and tape dressings with J-P drain; monitoring and measuring drainage- remains true. Left Lower Abdomen Drain Type MARIE drain Drainage Description Serosanguineous Odor None/Absent Eye Exam: PERRL, EOMI, eyes nml inspection Ears, Nose, Throat Exam: normal ENT inspection, pharynx normal, moist mucous membranes Neck Exam: normal inspection, non-tender, supple, full range of motion Respiratory Exam: normal breath sounds, lungs clear, No respiratory distress Cardiovascular Exam: regular rate/rhythm, normal heart sounds Gastrointestinal/Abdomen Exam: soft, tenderness (LLQ with palpation, MARIE drain in place with serosanguineous drainge.), No mass Extremity Exam: normal inspection, normal range of motion Back Exam: normal inspection, normal range of motion, No CVA tenderness, No vertebral tenderness Pelvic Exam: deferred Rectal Exam: deferred <CLOVER MARTINEZ - Last Filed: 09/26/23 09:17> Wound Assessment: Skin/Wound Assessment Wound/Incision Assessment Start: 09/25/23 22:21 Text: Status: Active Freq: Q6H Protocol: Document 09/26/23 13:40 JOSIAH (Rec: 09/26/23 13:40 [facility] [id number]) Wound/Incision Assessment Left Abdomen Wound Assessment Shift Assessment Wound Type Incision Wound Stage Non Pressure Wound Dressing Status Dry & Intact Primary Dressing Gauze Roll/Wrap Comment laproscopic surgical wound; steri strips, gauze and tape dressings with J-P drain; monitoring and measuring drainage- remains true. Left Lower Abdomen Drain Type MARIE drain Drainage Description Serosanguineous Odor None/Absent <PAUL EARL - Last Filed: 09/26/23 21:05> Objective Data Vital Signs: Vital Signs - 24 hr Temp Pulse Resp BP BP Pulse Ox 09/26/23 07:37 97.7 F 57 L 18 130/62 94 L 09/26/23 03:56 97.3 F 59 L 18 132/61 97 09/26/23 00:00 97.5 F 60 18 134/63 98 09/25/23 23:30 59 L 16 123/60 97 09/25/23 23:00 59 L 16 121/59 93 L 09/25/23 22:45 58 L 16 119/56 97 09/25/23 22:15 98.5 F 59 L 14 115/57 93 L 09/25/23 21:41 98.5 F 62 14 121/58 93 L 09/25/23 17:53 144/74 93 L 09/25/23 17:52 144/74 93 L 09/25/23 17:49 144/74 93 L 09/25/23 17:30 133/66 93 L 09/25/23 17:00 134/69 94 L 09/25/23 16:30 163/68 09/25/23 16:00 64 16 144/74 144/74 92 L 09/25/23 15:40 68 18 161/75 97 09/25/23 14:06 98.5 F 70 156/80 96 Pain Assessment - Last Documented Pain Intensity 8 Pain Scale Used 0-10 Pain Scale Intake and Output: Intake & Output 09/23/23 09/24/23 09/25/23 09/26/23 11:59 11:59 11:59 11:59 Intake Total 991 Output Total 115 Balance 876 Weight 64.4 kg Lab Results: Lab Results-Last 24 Hours 09/25/23 09/25/23 09/25/23 Range/Units 14:09 14:35 14:35 WBC 17.5 H (3.98-10.04) x10^3/uL RBC 4.01 (3.93-5.22) x10^6/uL Hgb 12.2 (11.2-15.7) g/dL Hct 35.7 (34.1-44.9) % MCV 89.0 (79.4-94.8) fL MCH 30.4 (25.6-32.2) pg MCHC 34.2 (32.2-35.5) g/dL RDW 13.8 (11.7-14.4) % Plt Count 397 H (182-369) x10^3/uL MPV 10.2 (9.4-12.3) fL Gran % 81.4 H (34.0-71.1) % Immature Gran % (Auto) 0.7 H (0.001-0.429) % Nucleat RBC Rel Count 0.0 (0.00-0.2) % Eos # (Auto) 0.15 (0.04-0.36) x10^3/uL Immature Gran # (Auto) 0.13 H (0.001-0.031) x10^3u/L Absolute Lymphs (auto) 1.75 (1.18-3.74) x10^3/uL Absolute Monos (auto) 1.17 H (0.24-0.86) x10^3/uL Absolute Nucleated RBC 0.00 (0.00-0.012) x10^3u/L Lymphocytes % 10.0 L (19.3-51.7) % Monocytes % 6.7 (4.7-12.5) % Eosinophils % 0.9 (0.7-5.8) % Basophils % 0.3 (0.1-1.2) % Absolute Granulocytes 14.23 H (1.56-6.13) x10^3/uL Basophils # 0.05 (0.01-0.08) x10^3/uL Sodium 135 (135-145) mmol/L Potassium 3.8 (3.5-5.1) mmol/L Chloride 102 (98-107) mmol/L Carbon Dioxide 19 L (22-30) mmol/L Anion Gap 17.9 H (5-15) MEQ/L BUN 22 H (7-17) mg/dL Creatinine 1.43 H (0.52-1.04) mg/dL Estimated GFR 38.0 ML/MIN Glucose 120 H (74-106) mg/dL Calcium 9.9 (8.4-10.2) mg/dL Total Bilirubin 0.50 (0.2-1.3) mg/dL AST 25 (14-36) U/L ALT 20 (0-35) U/L Alkaline Phosphatase 51 (38-126) U/L Serum Total Protein 7.1 (6.3-8.2) g/dL Albumin 4.1 (3.5-5.0) g/dL Prealbumin (17.6-36.0) mg/dL Amylase 62 (30-110) U/L Lipase 92 (23-300) U/L Urine Color Yellow (Yellow) Urine Appearance Clear (Clear) Urine pH 6.0 (4.6-8.0) Ur Specific [place] <=1.005 (1.005-1.030) Urine Protein Negative (Negative) Urine Glucose (UA) Negative (Negative) mg/dL Urine Ketones Negative (Negative) Urine Blood Negative (Negative) Urine Nitrite Negative (Negative) Urine Bilirubin Negative (Negative) Urine Urobilinogen 0.2 (0.2) mg/dL Ur Leukocyte Esterase Negative (Negative) U Hyaline Cast (Auto) NONE SEEN (0-2) /LPF Urine Microscopic RBC 0-2 (0-5) /HPF Urine Microscopic WBC 0-2 (0-5) /HPF Ur Epithelial Cells None Seen (None Seen) /HPF Urine Bacteria None Seen (None Seen) /HPF Urine Culture Reflexed NO (NO) 09/26/23 09/26/23 Range/Units 04:37 04:37 WBC 16.3 H (3.98-10.04) x10^3/uL RBC 3.65 L (3.93-5.22) x10^6/uL Hgb 11.1 L (11.2-15.7) g/dL Hct 33.1 L (34.1-44.9) % MCV 90.7 (79.4-94.8) fL MCH 30.4 (25.6-32.2) pg MCHC 33.5 (32.2-35.5) g/dL RDW 14.2 (11.7-14.4) % Plt Count 377 H (182-369) x10^3/uL MPV 9.9 (9.4-12.3) fL Gran % (34.0-71.1) % Immature Gran % (Auto) (0.001-0.429) % Nucleat RBC Rel Count (0.00-0.2) % Eos # (Auto) (0.04-0.36) x10^3/uL Immature Gran # (Auto) (0.001-0.031) x10^3u/L Absolute Lymphs (auto) (1.18-3.74) x10^3/uL Absolute Monos (auto) (0.24-0.86) x10^3/uL Absolute Nucleated RBC (0.00-0.012) x10^3u/L Lymphocytes % (19.3-51.7) % Monocytes % (4.7-12.5) % Eosinophils % (0.7-5.8) % Basophils % (0.1-1.2) % Absolute Granulocytes (1.56-6.13) x10^3/uL Basophils # (0.01-0.08) x10^3/uL Sodium 135 (135-145) mmol/L Potassium 4.1 (3.5-5.1) mmol/L Chloride 104 (98-107) mmol/L Carbon Dioxide 20 L (22-30) mmol/L Anion Gap 15.9 H (5-15) MEQ/L BUN 16 (7-17) mg/dL Creatinine 1.10 H (0.52-1.04) mg/dL Estimated GFR 52.1 ML/MIN Glucose 155 H (74-106) mg/dL Calcium 8.7 (8.4-10.2) mg/dL Total Bilirubin (0.2-1.3) mg/dL AST (14-36) U/L ALT (0-35) U/L Alkaline Phosphatase (38-126) U/L Serum Total Protein (6.3-8.2) g/dL Albumin (3.5-5.0) g/dL Prealbumin 10.19 L (17.6-36.0) mg/dL Amylase (30-110) U/L Lipase (23-300) U/L Urine Color (Yellow) Urine Appearance (Clear) Urine pH (4.6-8.0) Ur Specific [place] (1.005-1.030) Urine Protein (Negative) Urine Glucose (UA) (Negative) mg/dL Urine Ketones (Negative) Urine Blood (Negative) Urine Nitrite (Negative) Urine Bilirubin (Negative) Urine Urobilinogen (0.2) mg/dL Ur Leukocyte Esterase (Negative) U Hyaline Cast (Auto) (0-2) /LPF Urine Microscopic RBC (0-5) /HPF Urine Microscopic WBC (0-5) /HPF Ur Epithelial Cells (None Seen) /HPF Urine Bacteria (None Seen) /HPF Urine Culture Reflexed (NO) Radiology Exams: Radiology Procedures Category Date Time Status ABDOMEN AND PELVIS W/0 CONTRAS [CT] Stat Exams 09/25/23 14:39 Completed <CLOVER MARTINEZ - Last Filed: 09/26/23 09:17> Vital Signs: Vital Signs - 24 hr Temp Pulse Resp BP Pulse Ox 09/26/23 19:44 99.6 F 75 16 135/67 93 L 09/26/23 19:16 94 L 09/26/23 16:00 99.5 F 71 18 148/68 94 L 09/26/23 11:59 97.8 F 63 19 136/62 96 09/26/23 07:37 97.7 F 57 L 18 130/62 94 L 09/26/23 03:56 97.3 F 59 L 18 132/61 97 09/26/23 00:00 97.5 F 60 18 134/63 98 09/25/23 23:30 59 L 16 123/60 97 09/25/23 23:00 59 L 16 121/59 93 L 09/25/23 22:45 58 L 16 119/56 97 09/25/23 22:15 98.5 F 59 L 14 115/57 93 L 09/25/23 21:41 98.5 F 62 14 121/58 93 L Pain Assessment - Last Documented Pain Intensity 6 Pain Scale Used 0-10 Pain Scale Intake and Output: Intake & Output 09/24/23 09/25/23 09/26/23 09/27/23 11:59 11:59 11:59 11:59 Intake Total 991 1985 Output Total 115 1012 Balance 876 973 Weight 64.4 kg Lab Results: Lab Results-Last 24 Hours 09/26/23 09/26/23 Range/Units 04:37 04:37 WBC 16.3 H (3.98-10.04) x10^3/uL RBC 3.65 L (3.93-5.22) x10^6/uL Hgb 11.1 L (11.2-15.7) g/dL Hct 33.1 L (34.1-44.9) % MCV 90.7 (79.4-94.8) fL MCH 30.4 (25.6-32.2) pg MCHC 33.5 (32.2-35.5) g/dL RDW 14.2 (11.7-14.4) % Plt Count 377 H (182-369) x10^3/uL MPV 9.9 (9.4-12.3) fL Sodium 135 (135-145) mmol/L Potassium 4.1 (3.5-5.1) mmol/L Chloride 104 (98-107) mmol/L Carbon Dioxide 20 L (22-30) mmol/L Anion Gap 15.9 H (5-15) MEQ/L BUN 16 (7-17) mg/dL Creatinine 1.10 H (0.52-1.04) mg/dL Estimated GFR 52.1 ML/MIN Glucose 155 H (74-106) mg/dL Calcium 8.7 (8.4-10.2) mg/dL Prealbumin 10.19 L (17.6-36.0) mg/dL Radiology Exams: Radiology Procedures Category Date Time Status ABDOMEN AND PELVIS W/0 CONTRAS [CT] Stat Exams 09/25/23 14:39 Completed <PAUL EARL - Last Filed: 09/26/23 21:05> Assessment/Plan (1) Acute appendicitis Current Visit: Yes Status: Acute Assessment & Plan: - s/p appendectomy with Dr. Kirk 09/24. - IV fluids, antibiotics, clear liquid diet- continue - defer to primary for when to advance diet further Code(s): K35.80 - UNSPECIFIED ACUTE APPENDICITIS (2) Bilateral pulmonary embolism Current Visit: No Status: Acute Assessment & Plan: - HX of in June - Eliquis on hold will ask surgery if can be restarted today. - Eliquis held for surgery Code(s): I26.99 - OTHER PULMONARY EMBOLISM WITHOUT ACUTE COR PULMONALE (3) Hypertension Current Visit: No Status: Chronic Assessment & Plan: - BP stable - Home meds restarted Code(s): I10 - ESSENTIAL (PRIMARY) HYPERTENSION (4) Right leg DVT Current Visit: No Status: Acute Assessment & Plan: - HX of DVT in June per records - Eliquis on hold will ask surgery if can be restarted today. - Eliquis held for surgery Code(s): I82.401 - ACUTE EMBOLISM AND THOMBOS UNSP DEEP VEINS OF R LOW EXTREM (5) Hypothyroid Current Visit: No Status: Chronic Assessment & Plan: - Continue Synthroid Code(s): E03.9 - HYPOTHYROIDISM, UNSPECIFIED (6) CKD (chronic kidney disease) stage 3, GFR 30-59 ml/min Current Visit: Yes Status: Acute Assessment & Plan: - Creat 1.10 this AM better than BL per reviewing old records - IVF VTE: SCD's Next of KIN: Child, Shama Michel [phone] D/C plan: 1- days Code status: Full Code(s): N18.30 - CHRONIC KIDNEY DISEASE, STAGE 3 UNSPECIFIED <CLOVER MARTINEZ - Last Filed: 09/26/23 09:17> ARVIN Encounter - ARVIN Encounter Attestation ARVIN Encounter Attestation: "IhshireenpersonallysindiraexASHLEE Manning andhavediscussed pertinent aspects of their care with Clover Gordon agree with the history, physical exam (any modifications based on my personal exam will be noted below), assessment, and plan as outlined in original note. Please see immediately below for my summary of findings and additional assessment and plan along with any meaningful corrections/explanations to the Subjective/Objective portions of the ARVIN note will be noted." My portion of the encounter took place via telemedicine. Acute appendicitis, s/p surgery. Patient has a drain in place. Pain well controlled but not much of an appetite. Not passing gas. Will continue to monitor. <PAUL EARL - Last Filed: 09/26/23 21:05>
[2023-09-26] MEDS: Tricor 145 MG PO SCH (09:42)
[2023-09-26] MEDS: Calcium 500MG W/Vit D Tablet PO SCH (09:42)
[2023-09-26] MEDS: THERAGRAN MULTIVITAMIN PO SCH (09:42)
[2023-09-26] MEDS ORDERED: FENOFIBRATE 40 MG PO SCH (10:00)
[2023-09-26] MEDS ORDERED: SYNTHROID 88 MCG PO SCH (10:00)
[2023-09-26] MEDS ORDERED: IRBESARTAN 300 MG PO SCH (10:00)
[2023-09-26] MEDS ORDERED: NON-FORMULARY ITEM (Apixaban [Eliquis] 5 MG Tab.Ds.Pk) PO SCH (10:00)
[2023-09-26] MEDS ORDERED: NON-FORMULARY ITEM (Calcium Carb, Citrate/Vit D3 [Calcium + D3 Er Tablet] 1 EACH Tablet.Er PO SCH (10:00)
--- NOTE | 2023-09-26 14:15 | CONS ---
DATE OF CONSULTATION: 09/25/2023 CHIEF COMPLAINT: Abdominal pain. REFERRING PROVIDER: ED physician. HISTORY OF PRESENT ILLNESS: This patient presents with lower abdominal pain starting for 3 days associated with loss of appetite and pain with movement. She denies any fever, chest pain, or shortness of breath. She has a pulmonary embolism in June of this year, and she said they think it is from long car rides for traveling a lot. She is on Eliquis, which she had this morning. REVIEW OF SYSTEMS: See HPI. Otherwise, negative. PAST MEDICAL HISTORY: PE. She said she has a mild leaky heart valve as well. PAST SURGICAL HISTORY: Tubal ligation. Colonoscopy 2 years ago with no significant findings. MEDICATIONS: Reviewed. See MR. FAMILY HISTORY: Noncontributory. SOCIAL HISTORY: No tobacco. PHYSICAL EXAMINATION: GENERAL: No acute distress. HEENT: Sclerae anicteric. Extraocular motions are intact. NECK: Supple. No JVD. CHEST: Nonlabored breathing. ABDOMEN: Soft. Tender in the lower abdomen and to the right lower abdomen with some voluntary guarding. ASSESSMENT AND PLAN: Acute appendicitis with possible abscess and perforation. CT images reviewed, and the radiologist reads this as acute appendicitis with no obvious abscess or perforation; however, on further review of the imaging, to me it looks like she has a large abscess in the pelvis adjacent to the appendix and separate from the sigmoid colon. I reviewed CBC, CMP which were significant for elevated white blood cell count at 17,000 and elevated creatinine of 1.4. Likely consistent with some acute kidney injury as well. Case discussed with the ED physicians. Risks and benefits of surgery including alternatives to surgery were discussed in depth with the patient including a significant increased risk of bleeding due to her being on Eliquis for anticoagulation as well as perioperative potential complications like DVT, PE, infection, bowel or other organ injury. After discussing all of it, the patient wished to proceed. Plan for surgery today for laparoscopic possible open appendectomy.
[2023-09-26] MEDS: Zofran 4 MG/2 ML VIAL IV PRN (20:22)
[2023-09-26] MEDS: CLONIDINE 0.1 MG TABLET PO SCH (21:44)
[2023-09-27 06:03] LABS: Hematocrit 33.8 % (34.1-44.9); Hemoglobin 11.1 g/dL (11.2-15.7); Mean Cell Volume 91.4 fL (79.4-94.8); Mean Corpuscular Hgb Concent. 32.8 g/dL (32.2-35.5); Mean Platelet Volume 9.9 fL (9.4-12.3); Platelet Count 434 x10^3/uL (182-369); Red Cell Distribution Width 14.2 % (11.7-14.4); White Blood Count 16.1 x10^3/uL (3.98-10.04)
[2023-09-27 06:26] LABS: ALBUMIN 3.4 g/dL (3.5-5.0); ANION GAP 13.5 MEQ/L (5-15); BILIRUBIN,TOTAL 0.7 mg/dL (0.2-1.3); Calcium 8.6 mg/dL (8.4-10.2); Creatinine 1 1.12 mg/dL (0.52-1.04); Potassium 4.1 mmol/L (3.5-5.1); Total Protein 6.5 g/dL (6.3-8.2)
--- NOTE | 2023-09-27 13:02 | PCM.NOTE ---
Date and Time: 09/27/23 1254 Subjective Assessment: 09/26/23 78 y/o F with h/o DVT/PE in June, HTN, CKD3, and hypothyroidis. She was was admitted 09/25/23 with appendicitis. 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 She went to PCP and was told had UTI based on UA results and started on Bactrim. However, patient states pain continued to worsen despite the antibiotics, until it was "worse than having a baby." She denies any radiation of the pain, no fevers, nausea, diarrhea or constipation. She was eventually found to have acute appendicitis with trace free fluid but no jori abscess nor free air. Dr. Kirk admitted the patient and took her to the OR this evening. She states currently the pain is well-controlled on meds, and she feels a little tired, but otherwise better than she has for a few days. We are consulted for co-management of her medical problems during her hospital stay. Patient notes that she had a leg DVT with PE in June; she has been on Eliquis without bleeding issues since then. Her last dose taken was yesterday morning. Will Ask GS if ok to continue Eliquis today. Continue antibiotics and IV fluids. Discussed with pt and nurse to the need for pt to get up and walk d/t gas pains this AM. MARIE drain in place and 75ml out last night. She denies CP, SOB, N/V/D. She ate one jello cup this am and does not feel like eating anything more at this time. Per surgery transition diet when able to tolerate. 09/27/23 Pt sitting up in chair. She is anxious to get up and walk as well as take a shower today. She has not passed gas and continues to have some abd. tenderness. She feels it is improving and she is burping. She is trying to eat more of the clear liquid diet. She has had little out of the MARIE drain overnight. GS to see pt today. WBC continues to be about the same as yesterday 16.1. IV fluids stopped. She denies any further concerns at this time. - Review of Systems Constitutional: No Fever, No Chills Eyes: No Symptoms Ears, Nose, & Throat: No Symptoms Respiratory: No Cough, No Short Of Breath Cardiac: No Chest Pain, No Edema, No Syncope Abdominal/Gastrointestinal: Abdominal Pain, No Nausea, No Vomiting, No Diarrhea Genitourinary Symptoms: No Dysuria Musculoskeletal: No Back Pain, No Neck Pain Skin: No Rash Neurological: No Dizziness, No Focal Weakness, No Sensory Changes Psychological: No Symptoms Endocrine: No Symptoms Hematologic/Lymphatic: No Symptoms Immunological/Allergic: No Symptoms Objective Exam General Appearance: no apparent distress, alert Neurologic Exam: alert, oriented x 3, cooperative, normal mood/affect, nml cerebellar function, sensation nml, No motor deficits Skin Exam: normal color, warm, dry Wound Assessment: Skin/Wound Assessment Wound/Incision Assessment Start: 09/25/23 22:21 Text: Status: Active Freq: Q6H Protocol: Document 09/27/23 08:00 J (Rec: 09/27/23 09:29 JV [id number]) Wound/Incision Assessment Left Abdomen Wound Assessment Shift Assessment Wound Type Incision Wound Stage Non Pressure Wound Dressing Status Dry & Intact Drainage Amount None Drainage Odor None/Absent Primary Dressing Gauze Roll/Wrap Comment laproscopic surgical wound s/p appendectomy. Dressing CDI with no shadowing noted. Left Lower Abdomen Drain Type MARIE drain Drainage Description Serosanguineous Odor None/Absent Eye Exam: PERRL, EOMI, eyes nml inspection Ears, Nose, Throat Exam: normal ENT inspection, pharynx normal, moist mucous membranes Neck Exam: normal inspection, non-tender, supple, full range of motion Respiratory Exam: normal breath sounds, lungs clear, No respiratory distress Cardiovascular Exam: regular rate/rhythm, normal heart sounds Gastrointestinal/Abdomen Exam: soft, tenderness (generalized with palpation), No mass Extremity Exam: normal inspection, normal range of motion Back Exam: normal inspection, normal range of motion, No CVA tenderness, No vertebral tenderness Pelvic Exam: deferred Rectal Exam: deferred Objective Data Vital Signs: Vital Signs - 24 hr Temp Pulse Resp BP Pulse Ox 09/27/23 11:52 98 F 68 17 128/66 92 L 09/27/23 08:07 95 09/27/23 07:36 97.6 F 72 17 161/73 93 L 09/27/23 04:00 98.6 F 80 20 166/68 95 09/26/23 23:47 97.4 F 67 17 129/62 94 L 09/26/23 19:44 99.6 F 75 16 135/67 93 L 09/26/23 19:16 94 L 09/26/23 16:00 99.5 F 71 18 148/68 94 L Pain Assessment - Last Documented Pain Intensity 4 Pain Scale Used 0-10 Pain Scale Intake and Output: Intake & Output 09/25/23 09/26/23 09/27/23 09/28/23 11:59 11:59 11:59 11:59 Intake Total 991 3315 240 Output Total 115 1862 Balance 876 1453 240 Weight 64.4 kg 70.8 kg Lab Results: Lab Results-Last 24 Hours 09/27/23 09/27/23 Range/Units 05:20 05:20 WBC 16.1 H (3.98-10.04) x10^3/uL RBC 3.70 L (3.93-5.22) x10^6/uL Hgb 11.1 L (11.2-15.7) g/dL Hct 33.8 L (34.1-44.9) % MCV 91.4 (79.4-94.8) fL MCH 30.0 (25.6-32.2) pg MCHC 32.8 (32.2-35.5) g/dL RDW 14.2 (11.7-14.4) % Plt Count 434 H (182-369) x10^3/uL MPV 9.9 (9.4-12.3) fL Sodium 131 L (135-145) mmol/L Potassium 4.1 (3.5-5.1) mmol/L Chloride 99 (98-107) mmol/L Carbon Dioxide 22 (22-30) mmol/L Anion Gap 13.5 (5-15) MEQ/L BUN 8 (7-17) mg/dL Creatinine 1.12 H (0.52-1.04) mg/dL Estimated GFR 51.0 ML/MIN Glucose 102 (74-106) mg/dL Calcium 8.6 (8.4-10.2) mg/dL Total Bilirubin 0.70 (0.2-1.3) mg/dL AST 30 (14-36) U/L ALT 16 (0-35) U/L Alkaline Phosphatase 49 (38-126) U/L Serum Total Protein 6.5 (6.3-8.2) g/dL Albumin 3.4 L (3.5-5.0) g/dL Radiology Exams: Radiology Procedures Category Date Time Status ABDOMEN AND PELVIS W/0 CONTRAS [CT] Stat Exams 09/25/23 14:39 Completed Assessment/Plan (1) Acute appendicitis Current Visit: Yes Status: Acute Code(s): K35.80 - UNSPECIFIED ACUTE APPENDICITIS (2) Bilateral pulmonary embolism Current Visit: No Status: Acute Code(s): I26.99 - OTHER PULMONARY EMBOLISM WITHOUT ACUTE COR PULMONALE (3) Hypertension Current Visit: No Status: Chronic Code(s): I10 - ESSENTIAL (PRIMARY) HYPERTENSION (4) Right leg DVT Current Visit: No Status: Acute Code(s): I82.401 - ACUTE EMBOLISM AND THOMBOS UNSP DEEP VEINS OF R LOW EXTREM (5) Hypothyroid Current Visit: No Status: Chronic Code(s): E03.9 - HYPOTHYROIDISM, UNSPECIFIED (6) CKD (chronic kidney disease) stage 3, GFR 30-59 ml/min Current Visit: Yes Status: Acute Assessment & Plan: (1) Acute appendicitis Current Visit: Yes Status: Acute Assessment & Plan: - s/p appendectomy with Dr. Kirk 09/24. - IV fluids, antibiotics, clear liquid diet- continue - defer to primary for when to advance diet further 09/26 - pt not passing gas. - advance diet to soft. - Continue to walk - MARIE drain had little OP overnight. - WBC 16.1 Code(s): K35.80 - UNSPECIFIED ACUTE APPENDICITIS (2) Bilateral pulmonary embolism Current Visit: No Status: Acute Assessment & Plan: - HX of in June - Eliquis on hold will ask surgery if can be restarted today. - Eliquis held for surgery 09/26 - Eliquis restarted today per GS Code(s): I26.99 - OTHER PULMONARY EMBOLISM WITHOUT ACUTE COR PULMONALE (3) Hypertension Current Visit: No Status: Chronic Assessment & Plan: - BP stable - Home meds restarted Code(s): I10 - ESSENTIAL (PRIMARY) HYPERTENSION (4) Right leg DVT Current Visit: No Status: Acute Assessment & Plan: - HX of DVT in June per records - Eliquis on hold will ask surgery if can be restarted today. - Eliquis held for surgery 09/26 - Eliquis restarted today Code(s): I82.401 - ACUTE EMBOLISM AND THOMBOS UNSP DEEP VEINS OF R LOW EXTREM (5) Hypothyroid Current Visit: No Status: Chronic Assessment & Plan: - Continue Synthroid Code(s): E03.9 - HYPOTHYROIDISM, UNSPECIFIED (6) CKD (chronic kidney disease) stage 3, GFR 30-59 ml/min Current Visit: Yes Status: Acute Assessment & Plan: - Creat 1.10 this AM better than BL per reviewing old records - IVF 09/26 - Creat. 1.12- good for pt - IVF stopped VTE: SCD's Next of KIN: Child, Shama Michel [phone] D/C plan: 1-2 days Code status: Full Code(s): N18.30 - CHRONIC KIDNEY DISEASE, STAGE 3 UNSPECIFIED Code(s): N18.30 - CHRONIC KIDNEY DISEASE, STAGE 3 UNSPECIFIED
[2023-09-27] MEDS: NORCO 5/325 MG PO PRN (13:05)
[2023-09-27] MEDS: ELIQUIS 2.5 MG TABLET PO SCH (21:20)
[2023-09-28 06:21] LABS: Hematocrit 35.6 % (34.1-44.9); Hemoglobin 11.6 g/dL (11.2-15.7); Mean Cell Volume 91.8 fL (79.4-94.8); Mean Corpuscular Hemoglobin 29.9 pg (25.6-32.2); Mean Corpuscular Hgb Concent. 32.6 g/dL (32.2-35.5); Mean Platelet Volume 9.8 fL (9.4-12.3); Platelet Count 484 x10^3/uL (182-369); Red Blood Count 3.88 x10^6/uL (3.93-5.22); Red Cell Distribution Width 14.1 % (11.7-14.4); White Blood Count 14.9 x10^3/uL (3.98-10.04)
[2023-09-28 06:33] LABS: ALBUMIN 3.8 g/dL (3.5-5.0); ANION GAP 12.1 MEQ/L (5-15); BILIRUBIN,TOTAL 0.7 mg/dL (0.2-1.3); Calcium 9.3 mg/dL (8.4-10.2); Creatinine 1 1.19 mg/dL (0.52-1.04); EST GLOMERULAR FILTRATION RATE 47.4 ML/MIN; Potassium 3.6 mmol/L (3.5-5.1); Total Protein 7.3 g/dL (6.3-8.2)
[2023-09-28] MEDS: Sodium Chloride 0.9% 1000 ML 1,000 ML IV SCH (10:04)
--- NOTE | 2023-09-28 10:39 | PCM.NOTE ---
Date and Time: 09/28/23 1030 Subjective Assessment: 09/26/23 78 y/o F with h/o DVT/PE in June, HTN, CKD3, and hypothyroidis. She was was admitted 09/25/23 with appendicitis. Patient had complained of onset of sharp suprapubic pain on Friday (3 days [employer]), associated with dysuria and urinary frequency. She went to PCP and was told had UTI based on UA results and started on Bactrim. However, patient states pain continued to worsen despite the antibiotics, until it was "worse than having a baby." She denies any radiation of the pain, no fevers, nausea, diarrhea or constipation. She was eventually found to have acute appendicitis with trace free fluid but no jori abscess nor free air. Dr. Kirk admitted the patient and took her to the OR this evening. She states currently the pain is well-controlled on meds, and she feels a little tired, but otherwise better than she has for a few days. We are consulted for co-management of her medical problems during her hospital stay. Patient notes that she had a leg DVT with PE in June; she has been on Eliquis without bleeding issues since then. Her last dose taken was yesterday morning. Will Ask GS if ok to continue Eliquis today. Continue antibiotics and IV fluids. Discussed with pt and nurse to the need for pt to get up and walk d/t gas pains this AM. MARIE drain in place and 75ml out last night. She denies CP, SOB, N/V/D. She ate one jello cup this am and does not feel like eating anything more at this time. Per surgery transition diet when able to tolerate. 09/27/23 Pt sitting up in chair. She is anxious to get up and walk as well as take a shower today. She has not passed gas and continues to have some abd. tenderness. She feels it is improving and she is burping. She is trying to eat more of the clear liquid diet. She has had little out of the MARIE drain overnight. GS to see pt today. WBC continues to be about the same as yesterday 16.1. IV fluids stopped. She denies any further concerns at this time. 09/28/23 Pt resting in chair. She is feeling better today. No OP from MARIE drain last night. She has not passed gas or had BM yet. She remains on a clear liquid diet per surgery order. She feels abd. pain is improving daily. She has good BS x4. She has been walking in the halls with her yesterday and today and doing well. Eliquis restarted yesterday. She denies Cp, SOB, N/V/D. - Review of Systems Constitutional: No Fever, No Chills Eyes: No Symptoms Ears, Nose, & Throat: No Symptoms Respiratory: No Cough, No Short Of Breath Cardiac: No Chest Pain, No Edema, No Syncope Abdominal/Gastrointestinal: Abdominal Pain (generalized with palpation), No Nausea, No Vomiting, No Diarrhea Genitourinary Symptoms: No Dysuria Musculoskeletal: No Back Pain, No Neck Pain Skin: No Rash Neurological: No Dizziness, No Focal Weakness, No Sensory Changes Psychological: No Symptoms Endocrine: No Symptoms Hematologic/Lymphatic: No Symptoms Immunological/Allergic: No Symptoms Objective Exam General Appearance: no apparent distress, alert Neurologic Exam: alert, oriented x 3, cooperative, normal mood/affect, nml cerebellar function, sensation nml, No motor deficits Skin Exam: normal color, warm, dry Wound Assessment: Skin/Wound Assessment Wound/Incision Assessment Start: 09/25/23 22:21 Text: Status: Active Freq: Q6H Protocol: Document 09/28/23 02:00 AF (Rec: 09/28/23 05:09 AF [id number]) Wound/Incision Assessment Left Abdomen Wound Assessment Shift Assessment Wound Type Incision Wound Stage Non Pressure Wound Dressing Status Dry & Intact Drainage Amount None Drainage Odor None/Absent Primary Dressing Gauze Roll/Wrap Comment laproscopic surgical wound s/p appendectomy. Dressing CDI with no shadowing noted. Pj- Fan drain Remains in place and draining. Left Lower Abdomen Drain Type MARIE drain Drainage Description Serosanguineous Odor None/Absent Eye Exam: PERRL, EOMI, eyes nml inspection Ears, Nose, Throat Exam: normal ENT inspection, pharynx normal, moist mucous membranes Neck Exam: normal inspection, non-tender, supple, full range of motion Respiratory Exam: normal breath sounds, lungs clear, No respiratory distress Cardiovascular Exam: regular rate/rhythm, normal heart sounds Gastrointestinal/Abdomen Exam: soft, normal bowel sounds, tenderness ( generalized with palpation, LLQ MARIE drain in place with no current output), No mass Extremity Exam: normal inspection, normal range of motion Back Exam: normal inspection, normal range of motion, No CVA tenderness, No vertebral tenderness Pelvic Exam: deferred Rectal Exam: deferred Objective Data Vital Signs: Vital Signs - 24 hr Temp Pulse Resp BP Pulse Ox 09/28/23 07:08 98.1 F 62 16 129/60 93 L 09/28/23 04:00 97.6 F 64 16 159/69 92 L 09/28/23 00:00 97.4 F 61 19 150/70 94 L 09/27/23 20:22 94 L 09/27/23 19:56 98.5 F 72 17 174/68 95 09/27/23 16:00 97.8 F 72 18 128/61 92 L 09/27/23 11:52 98 F 68 17 128/66 92 L Pain Assessment - Last Documented Pain Intensity 4 Pain Scale Used 0-10 Pain Scale Intake and Output: Intake & Output 09/25/23 09/26/23 09/27/23 09/28/23 11:59 11:59 11:59 11:59 Intake Total 991 3315 1008 Output Total 115 1862 2265 Balance 876 1453 -1257 Weight 64.4 kg 70.8 kg Lab Results: Lab Results-Last 24 Hours 09/28/23 09/28/23 Range/Units 05:23 05:23 WBC 14.9 H (3.98-10.04) x10^3/uL RBC 3.88 L (3.93-5.22) x10^6/uL Hgb 11.6 (11.2-15.7) g/dL Hct 35.6 (34.1-44.9) % MCV 91.8 (79.4-94.8) fL MCH 29.9 (25.6-32.2) pg MCHC 32.6 (32.2-35.5) g/dL RDW 14.1 (11.7-14.4) % Plt Count 484 H (182-369) x10^3/uL MPV 9.8 (9.4-12.3) fL Sodium 135 (135-145) mmol/L Potassium 3.6 (3.5-5.1) mmol/L Chloride 100 (98-107) mmol/L Carbon Dioxide 27 (22-30) mmol/L Anion Gap 12.1 (5-15) MEQ/L BUN 9 (7-17) mg/dL Creatinine 1.19 H (0.52-1.04) mg/dL Estimated GFR 47.4 ML/MIN Glucose 91 (74-106) mg/dL Calcium 9.3 (8.4-10.2) mg/dL Total Bilirubin 0.70 (0.2-1.3) mg/dL AST 32 (14-36) U/L ALT 23 (0-35) U/L Alkaline Phosphatase 59 (38-126) U/L Serum Total Protein 7.3 (6.3-8.2) g/dL Albumin 3.8 (3.5-5.0) g/dL Assessment/Plan (1) Acute appendicitis Current Visit: Yes Status: Acute Code(s): K35.80 - UNSPECIFIED ACUTE APPENDICITIS (2) Bilateral pulmonary embolism Current Visit: No Status: Acute Code(s): I26.99 - OTHER PULMONARY EMBOLISM WITHOUT ACUTE COR PULMONALE (3) Hypertension Current Visit: No Status: Chronic Code(s): I10 - ESSENTIAL (PRIMARY) HYPERTENSION (4) Right leg DVT Current Visit: No Status: Acute Code(s): I82.401 - ACUTE EMBOLISM AND THOMBOS UNSP DEEP VEINS OF R LOW EXTREM (5) Hypothyroid Current Visit: No Status: Chronic Code(s): E03.9 - HYPOTHYROIDISM, UNSPECIFIED (6) CKD (chronic kidney disease) stage 3, GFR 30-59 ml/min Current Visit: Yes Status: Acute Assessment & Plan: (1) Acute appendicitis Current Visit: Yes Status: Acute Assessment & Plan: - s/p appendectomy with Dr. Kirk 09/24. - POD #2 - IV fluids, antibiotics, clear liquid diet- continue - defer to primary for when to advance diet further 8/3 - POD day # 3 - pt not passing gas. - clear liquid diet per surgery until passes gas. - Continue to walk - MARIE drain had little OP overnight. - WBC 16.1 8/ - BS x4- no BM or passing of gas. - Incentive spirometer - POD #4 Code(s): K35.80 - UNSPECIFIED ACUTE APPENDICITIS (2) Bilateral pulmonary embolism Current Visit: No Status: Acute Assessment & Plan: - HX of in June - Eliquis on hold will ask surgery if can be restarted today. - Eliquis held for surgery 09/26 - Eliquis restarted today per GS Code(s): I26.99 - OTHER PULMONARY EMBOLISM WITHOUT ACUTE COR PULMONALE (3) Hypertension Current Visit: No Status: Chronic Assessment & Plan: - BP stable - Home meds restarted Code(s): I10 - ESSENTIAL (PRIMARY) HYPERTENSION (4) Right leg DVT Current Visit: No Status: Acute Assessment & Plan: - HX of DVT in June per records - Eliquis on hold will ask surgery if can be restarted today. - Eliquis held for surgery 09/26 - Eliquis restarted today Code(s): I82.401 - ACUTE EMBOLISM AND THOMBOS UNSP DEEP VEINS OF R LOW EXTREM (5) Hypothyroid Current Visit: No Status: Chronic Assessment & Plan: - Continue Synthroid Code(s): E03.9 - HYPOTHYROIDISM, UNSPECIFIED (6) CKD (chronic kidney disease) stage 3, GFR 30-59 ml/min Current Visit: Yes Status: Acute Assessment & Plan: - Creat 1.10 this AM better than BL per reviewing old records - IVF 09/26 - Creat. 1.12- good for pt - IVF stopped 09/27 - Creat 1.19 - NS @ 75 restarted VTE: SCD's Next of KIN: Child, Shama Michel [phone] D/C plan: tomorrow? Code status: Full Code(s): N18.30 - CHRONIC KIDNEY DISEASE, STAGE 3 UNSPECIFIED
--- NOTE | 2023-09-28 21:09 | OP ---
SURGERY DATE/TIME: 09/25/20231841 - 1958 PREOPERATIVE DIAGNOSIS: Acute appendicitis. POSTOPERATIVE DIAGNOSIS: Acute perforated appendicitis with abscess. PROCEDURE: Laparoscopic appendectomy. SURGEON: Cristóbal Kirk MD. ANESTHESIA: General. ESTIMATED BLOOD LOSS: 10 mL. COMPLICATIONS: None. SPECIMEN: Appendix. FINDINGS: Perforated appendix with a walled off abscess in the pelvis. DRAINS: MARIE 7 [place] drain x1. INDICATIONS: The patient presents with signs, symptoms, and CT scan evidence of acute appendicitis. After discussing the risks and benefits of procedure, patient wishes to proceed. She is on therapeutic anticoagulation with Eliquis and is aware of the increased potential risk of bleeding with surgery. DESCRIPTION OF PROCEDURE AND FINDINGS: The patient was brought to the operating room, placed supine on the table, placed under general anesthesia. Left arm tucked. Hinds catheter placed by nursing. Abdomen prepped and draped in sterile fashion. Incision made at the umbilicus. Blunt dissection performed down to the fascia. Fascia lifted up with a clamp. Veress needle inserted. Pneumoperitoneum obtained. A 5 mL optical trocar was then inserted under direct visualization. The abdomen was entered. The area of entry was inspected and there did not appear to be any inadvertent injury. An additional 12 port placed left lower quadrant and another 5 port placed left mid abdomen. The patient was positioned and the pelvis explored. The appendix can be seen. Going down to the appendix, there is a loop of small bowel that is intimately associated with the appendix. The base of the appendix is healthy appearing and the right fallopian tube fimbria is up against the appendix as well. I started with creating a window in the mesentery at the base of the appendix and taking some of the mesentery and then transecting the appendix at its juncture with the cecum with a white endo CELIA stapler. I then used the appendiceal stump as a handle to start lifting it out of the pelvis. I then used some blunt dissection to dissect it off the sidewall and then sequentially took the mesentery with the ligature. It was quite stuck to the small bowel but I was able to dissect it free. The appendix was quite rotten and it started breaking apart into pieces. I took a couple of small pieces but the bulk of it was removed in 2 larger pieces. Upon dissecting this free from the small bowel, we entered a large abscess pocket. It was suctioned out. There was a copious amount of pus in this pocket. Eventually, the fragments of the appendix were removed with a bag. The pelvis was irrigated and suctioned dry. I do not see any residual appendix but some of this tissue is really hard to tell if it is just abscess cavity wall versus some small remnants of appendiceal wall but I do not think there really is any residual appendix here. The field was fairly hemostatic. There was just some very minor venous ooze from the dissection area. The 7-[place] drain was brought in through one of the 5 trocars and sutured in place and placed down in the pelvis. The 12 trocar was closed with 0 Vicryl suture with a suture passer, the other trocar removed, the abdomen desufflated. Wounds injected with 0.25% Marcaine and closed with 4-0 Vicryl sutures. Dressing was applied. Patient recovered and taken to PACU in stable condition.
[2023-09-29 04:42] LABS: Hematocrit 31.4 % (34.1-44.9); Hemoglobin 10.3 g/dL (11.2-15.7); Mean Corpuscular Hemoglobin 29.9 pg (25.6-32.2); Mean Corpuscular Hgb Concent. 32.8 g/dL (32.2-35.5); Mean Platelet Volume 9.3 fL (9.4-12.3); Platelet Count 432 x10^3/uL (182-369); Red Blood Count 3.45 x10^6/uL (3.93-5.22); Red Cell Distribution Width 13.7 % (11.7-14.4); White Blood Count 11.2 x10^3/uL (3.98-10.04)
[2023-09-29 04:59] LABS: ALBUMIN 3.3 g/dL (3.5-5.0); ANION GAP 11.1 MEQ/L (5-15); BILIRUBIN,TOTAL 0.5 mg/dL (0.2-1.3); Calcium 8.9 mg/dL (8.4-10.2); Creatinine 1 1.01 mg/dL (0.52-1.04); EST GLOMERULAR FILTRATION RATE 57.7 ML/MIN; Potassium 3.8 mmol/L (3.5-5.1); Total Protein 6.5 g/dL (6.3-8.2)
--- NOTE | 2023-09-29 05:10 | PCM.NOTE ---
Date and Time: 09/29/23 0505 Subjective Assessment: 78 year old female with a pmhx of DVT/PE in June, HTN, CKD3, and hypothyroidism admitted 09/25/23 with acute appendicitis after experiencing a three day history of sharp suprapubic pain. Originally attempted OP treatment with Bactrim for what was thought to be a UTI but pain progressed. CT demonstrated found to have acute appendicitis with trace free fluid but no jori abscess nor free air. Surgery consulted and Lap appendectomy performed -perforation with abscess noted- MARIE drain in place. Patient has received IP treatment with Zosyn. Will discharge on Augmentin. Diet advanced to regular 09/29/23. Hospitalist team consulted for co-management of her medical problems during her hospital stay. Eliquis has been resumed. 09/29/23: Patient up in chair. Rating abdominal pain 2/10 this morning at surgical site. MARIE drain with <10ml over the past 24 hours. +Flautus. No BM yet. BS x 4 quads. Regular diet resumed today. Surgery following. Advised ambulation. <NICK ODONNELL - Last Filed: 09/29/23 09:35> Date and Time: 09/29/232110 <PAUL EARL - Last Filed: 09/29/23 21:12> - Review of Systems Constitutional: No Symptoms Eyes: No Symptoms Ears, Nose, & Throat: No Symptoms Respiratory: No Symptoms Cardiac: No Symptoms Abdominal/Gastrointestinal: Abdominal Pain Genitourinary Symptoms: No Symptoms Musculoskeletal: No Symptoms Skin: No Symptoms Neurological: No Symptoms Psychological: No Symptoms Endocrine: No Symptoms Hematologic/Lymphatic: No Symptoms Immunological/Allergic: No Symptoms <NICK ODONNELL - Last Filed: 09/29/23 09:35> Objective Exam General Appearance: no apparent distress Neurologic Exam: alert, oriented x 3, cooperative Skin Exam: other (see wound assessment MARIE with <10ml serosanguineous drainage) Wound Assessment: Skin/Wound Assessment Wound/Incision Assessment Start: 09/25/23 22:21 Text: Status: Active Freq: Q6H Protocol: Document 09/29/23 03:00 TC (Rec: 09/29/23 04:21 TC [id number]) Wound/Incision Assessment Left Abdomen Wound Assessment Shift Assessment Wound Type Incision Wound Stage Non Pressure Wound Dressing Status Dry & Intact Drainage Amount None Drainage Odor None/Absent Primary Dressing Gauze Roll/Wrap Comment laproscopic surgical wound s/p appendectomy. Dressing CDI with no shadowing noted. Remains true. Pj- Fan drain in place and draining. -- remains true Left Lower Abdomen Drain Type MARIE drain Drainage Description Serosanguineous Eye Exam: PERRL Ears, Nose, Throat Exam: normal ENT inspection Neck Exam: normal inspection Respiratory Exam: normal breath sounds, lungs clear Cardiovascular Exam: regular rate/rhythm, normal heart sounds Gastrointestinal/Abdomen Exam: soft, normal bowel sounds, tenderness Extremity Exam: normal inspection, normal range of motion Back Exam: normal inspection Pelvic Exam: deferred Rectal Exam: deferred <NICK ODONNELL - Last Filed: 09/29/23 09:35> Objective Data Vital Signs: Vital Signs - 24 hr Temp Pulse Resp BP Pulse Ox 09/29/23 04:00 98.4 F 68 18 133/62 93 L 09/28/23 23:49 98.3 F 68 16 161/72 94 L 09/28/23 21:11 93 L 09/28/23 19:41 97.7 F 69 18 151/70 94 L 09/28/23 16:31 96 09/28/23 16:00 97.9 F 64 16 137/62 95 09/28/23 11:52 97.8 F 63 16 148/62 94 L 09/28/23 10:58 93 L 09/28/23 07:08 98.1 F 62 16 129/60 93 L Pain Assessment - Last Documented Pain Intensity 3 Pain Scale Used [facility] Intake and Output: Intake & Output 09/26/23 09/27/23 09/28/23 09/29/23 11:59 11:59 11:59 11:59 Intake Total 991 3315 1008 2063 Output Total 115 1862 3065 1708 Balance 876 1453 -2057 355 Weight 64.4 kg 70.8 kg Lab Results: Lab Results-Last 24 Hours 09/28/23 09/28/23 09/29/23 Range/Units 05:23 05:23 04:37 WBC 14.9 H 11.2 H (3.98-10.04) x10^3/uL RBC 3.88 L 3.45 L (3.93-5.22) x10^6/uL Hgb 11.6 10.3 L (11.2-15.7) g/dL Hct 35.6 31.4 L (34.1-44.9) % MCV 91.8 91.0 (79.4-94.8) fL MCH 29.9 29.9 (25.6-32.2) pg MCHC 32.6 32.8 (32.2-35.5) g/dL RDW 14.1 13.7 (11.7-14.4) % Plt Count 484 H 432 H (182-369) x10^3/uL MPV 9.8 9.3 L (9.4-12.3) fL Sodium 135 (135-145) mmol/L Potassium 3.6 (3.5-5.1) mmol/L Chloride 100 (98-107) mmol/L Carbon Dioxide 27 (22-30) mmol/L Anion Gap 12.1 (5-15) MEQ/L BUN 9 (7-17) mg/dL Creatinine 1.19 H (0.52-1.04) mg/dL Estimated GFR 47.4 ML/MIN Glucose 91 (74-106) mg/dL Calcium 9.3 (8.4-10.2) mg/dL Total Bilirubin 0.70 (0.2-1.3) mg/dL AST 32 (14-36) U/L ALT 23 (0-35) U/L Alkaline Phosphatase 59 (38-126) U/L Serum Total Protein 7.3 (6.3-8.2) g/dL Albumin 3.8 (3.5-5.0) g/dL <NICK ODONNELL - Last Filed: 09/29/23 09:35> Vital Signs: Vital Signs - 24 hr Temp Pulse Resp BP Pulse Ox 09/29/23 11:54 97.7 F 66 20 168/74 95 09/29/23 07:07 98.4 F 66 18 148/70 94 L 09/29/23 07:00 95 09/29/23 04:00 98.4 F 68 18 133/62 93 L 09/28/23 23:49 98.3 F 68 16 161/72 94 L Pain Assessment - Last Documented Pain Intensity 2 Pain Scale Used 0-10 Pain Scale Intake and Output: Intake & Output 09/27/23 09/28/23 09/29/23 09/30/23 11:59 11:59 11:59 11:59 Intake Total 3312 1000 2067 Output Total 2157 8794 1705 Balance 1453 -5 355 Weight 70.8 kg 65.3 kg Lab Results: Lab Results-Last 24 Hours 09/29/23 09/29/23 Range/Units 04:37 04:37 WBC 11.2 H (3.98-10.04) x10^3/uL RBC 3.45 L (3.93-5.22) x10^6/uL Hgb 10.3 L (11.2-15.7) g/dL Hct 31.4 L (34.1-44.9) % MCV 91.0 (79.4-94.8) fL MCH 29.9 (25.6-32.2) pg MCHC 32.8 (32.2-35.5) g/dL RDW 13.7 (11.7-14.4) % Plt Count 432 H (182-369) x10^3/uL MPV 9.3 L (9.4-12.3) fL Sodium 134 L (135-145) mmol/L Potassium 3.8 (3.5-5.1) mmol/L Chloride 103 (98-107) mmol/L Carbon Dioxide 24 (22-30) mmol/L Anion Gap 11.1 (5-15) MEQ/L BUN 10 (7-17) mg/dL Creatinine 1.01 (0.52-1.04) mg/dL Estimated GFR 57.7 ML/MIN Glucose 87 (74-106) mg/dL Calcium 8.9 (8.4-10.2) mg/dL Total Bilirubin 0.50 (0.2-1.3) mg/dL AST 29 (14-36) U/L ALT 19 (0-35) U/L Alkaline Phosphatase 52 (38-126) U/L Serum Total Protein 6.5 (6.3-8.2) g/dL Albumin 3.3 L (3.5-5.0) g/dL Multi-Disciplinary Progress Notes: Multi-Disciplinary Progress Notes 09/29/23 12:00 Case Management Note by Paty Leblanc S/W PATIENT- SHE CONTINUES TO DENY ANY NEW NEEDS AT TIME OF DC. SHE PLANS TO DC HOME WITH HER AT TIME OF DC Initialized on 09/29/23 12:00 - END OF NOTE <PAUL EARL - Last Filed: 09/29/23 21:12> Assessment/Plan (1) Acute appendicitis Status: Acute Assessment & Plan: - s/p appendectomy with Dr. Kirk 09/24. - POD #5 - IV fluids, Zosyn,- continue - ADAT to regular per surgery 09/28 - +flatulence - no BM - Incentive spirometer Code(s): K35.80 - UNSPECIFIED ACUTE APPENDICITIS (2) CKD (chronic kidney disease) stage 3, GFR 30-59 ml/min Status: Acute Assessment & Plan: -Baseline according to previous labwork around 1.3 - at 1.01 - dc fluids Code(s): N18.30 - CHRONIC KIDNEY DISEASE, STAGE 3 UNSPECIFIED (3) Bilateral pulmonary embolism Status: Acute Assessment & Plan: - Diagnosed in June 2023 - Eliquis restarted 09/27/23 per Code(s): I26.99 - OTHER PULMONARY EMBOLISM WITHOUT ACUTE COR PULMONALE (4) Right leg DVT Status: Acute Assessment & Plan: -See PE - on Eliquis - resumed s/p lap appy 09/27/23 Code(s): I82.401 - ACUTE EMBOLISM AND THOMBOS UNSP DEEP VEINS OF R LOW EXTREM (5) HTN (hypertension) Status: Chronic Assessment & Plan: - BP stable -continue home medication regimen Code(s): I10 - ESSENTIAL (PRIMARY) HYPERTENSION (6) Hypothyroid Status: Chronic Assessment & Plan: - Continue Synthroid VTE: SCD's Next of KIN: Child, Shama Michel [phone] Code status: Full Code(s): E03.9 - HYPOTHYROIDISM, UNSPECIFIED <NICK ODONNELL - Last Filed: 09/29/23 09:35> ARVIN Encounter - ARVIN Encounter Attestation ARVIN Encounter Attestation: "IhavepersonallyseenandASHLEE Cordova andsravaniiscussed pertinent aspects of their care with Nick Odonnell and agree with the history, physical exam (any modifications based on my personal exam will be noted below), assessment, and plan as outlined in original note. Please see immediately below for my summary of findings and additional assessment and plan along with any meaningful corrections/explanations to the Subjective/Objective portions of the ARVIN note will be noted." My portion of the encounter took place via telemedicine. -Pain is well controlled, minimal MARIE drain output. Tolerating regular diet however awaiting BM prior to DC home. <PAUL EARL - Last Filed: 09/29/23 21:12>
[2023-09-29 07:07] VITALS: PULSE 66
[2023-09-29 11:55] VITALS: BP 168/74; RESP 20; TEMP 97.7; O2SAT 95
--- NOTE | 2023-09-30 13:34 | DS ---
DISCHARGE SUMMARY PREOPERATIVE DIAGNOSIS: Acute appendicitis with perforation. DISCHARGE DIAGNOSES: Acute appendicitis with perforation, with ileus. HOSPITAL COURSE: Patient presented with acute appendicitis to the emergency room on 09/25/2023, and underwent laparoscopic appendectomy. It was perforated. Because of this, she was maintained in the hospital postoperatively with IV antibiotics. She did have delayed bowel function, likely a mild ileus, as a result of the perforated appendicitis. Ultimately, she did begin to pass flatus and tolerated her diet and felt improved. Her white count improved, and she was ultimately discharged on 09/29/2023, with oral antibiotics and plans for outpatient followup. Please see the electronic medical record for further details on hospital course and discharge medications.
== END 2023-09-29 13:10 | disposition home or self-care (01) | DRG 397 ==
LOC: ED 14:01 → MED SURG 21:14 → OBSVTOIN 09-26 16:00
PROVIDERS: ADMIT Surgery; ATTEND Surgery
PROC: 0DTJ4ZZ Resection of Appendix, Percutaneous Endoscopic Approach (ICD-10-PCS; principal; 2023-09-25)
DX: K35.32 Acute appendicitis with perforation, localized peritonitis, and gangrene, without abscess (principal); I26.99 Other pulmonary embolism without acute cor pulmonale; I12.9 Hypertensive chronic kidney disease with stage 1 through stage 4 chronic kidney disease, or unspecified chronic kidney disease; N18.30 Chronic kidney disease, stage 3 unspecified; E03.9 Hypothyroidism, unspecified; Z79.01 Long term (current) use of anticoagulants; Z79.899 Other long term (current) drug therapy; Z86.718 Personal history of other venous thrombosis and embolism
CPT/HCPCS: 00840; 36000; 36415; 44970; 74176; 80048; 80053; 81001; 82150; 83690; 84134; 85025; 85027; 87086; 93005; 94760; 96365; 96374; 96375; 99100; 99140; 99285; G0378; Q3014; J0330; J2250; J2270; J2405; J2543; J2704; J3010; A9270-GY